=== PATIENT | female | born 1930 | race Caucasian/White ===

== ENCOUNTER 2016-09-01 17:12 | Emergency (ER) | END 2016-09-01 21:30 | disposition home or self-care (01) | CPT/HCPCS: 71020; 94640; 99283; A9270; J7620 ==

== ENCOUNTER 2016-12-01 15:59 | Outpatient (CLI) | payer MEDICARE, OTHER | END 2016-12-01 16:00 | disposition home or self-care (01) | DX: N39.0 Urinary tract infection, site not specified (principal) ==

== ENCOUNTER 2016-12-10 14:03 | Outpatient (CLI) | payer MEDICARE, OTHER | END 2016-12-10 14:04 | DX: R07.9 Chest pain, unspecified (principal) ==

== ENCOUNTER 2017-04-10 11:30 | Outpatient (CLI) | payer MEDICARE, OTHER | END 2017-04-10 11:31 | disposition home or self-care (01) | LOC: LAB.R 11:30 | PROVIDERS: ATTEND Family Medicine | DX: N39.0 Urinary tract infection, site not specified (principal) | CPT/HCPCS: 87086 ==

== ENCOUNTER 2017-06-17 11:46 | Outpatient (CLI) | payer MEDICARE, OTHER ==
[2017-06-17 12:07] LABS: BASOPHILS # (AUTO) 0.1 10^3/uL (0.0-0.1); BASOPHILS % (AUTO) 1.5 %; EOSINOPHILS # (AUTO) 0.1 10^3/uL (0.0-0.7); EOSINOPHILS % (AUTO) 1.9 %; HCT - HEMATOCRIT 38.3 % (37.0-47.0); HGB - HEMOGLOBIN 12.8 g/dL (12.0-16.0); LYMPHOCYTES # (AUTO) 1.1 10^3/uL (1.5-3.5); MEAN CORPUSCULAR HEMOGLOBIN 30.7 pg (27.0-31.0); MEAN CORPUSCULAR HGB CONC 33.4 g/dL (32.0-36.0); MEAN PLATELET VOLUME 8.7 fL (7.9-10.8); MONOCYTES # (AUTO) 0.4 10^3/uL (0.0-1.0); MONOCYTES % (AUTO) 6.9 %; NEUTROPHILS # (AUTO) 4.5 10^3/uL (1.5-6.6); NEUTROPHILS % (AUTO) 71.7 %; RED BLOOD COUNT 4.16 10^6/uL (4.20-5.40); RED CELL DISTRIBUTION WIDTH 14.7 % (12.0-15.0); UNCORRECTED WHITE BLOOD COUNT 6.3 x10^3/uL; WHITE BLOOD COUNT 6.3 x10^3/uL (4.8-10.8)
[2017-06-17 12:28] LABS: BILIRUBIN,URINE NEGATIVE (NEGATIVE)
[2017-06-17 12:30] LABS: UA CHARGE (STRIP ONLY) YES; UR CULTURE IF IND NOT INDICATED
[2017-06-17 12:31] LABS: CALCIUM 9.2 mg/dL (8.5-10.3); CREATININE 0.9 mg/dL (0.4-1.0); POTASSIUM 3.8 mmol/L (3.5-5.0)
[2017-06-17 12:39] LABS: HEMOGLOBIN A1C 0.57 g/dL
== END 2017-06-17 11:47 | disposition home or self-care (01) ==
LOC: LAB 11:46
PROVIDERS: ATTEND Orthopaedic Surgery
DX: Z01.818 Encounter for other preprocedural examination (principal); N39.0 Urinary tract infection, site not specified; R73.09 Other abnormal glucose; Z01.812 Encounter for preprocedural laboratory examination
CPT/HCPCS: 36415; 80048; 81001; 81003; 83036; 85025; 87086

== ENCOUNTER 2017-08-06 08:00 | Outpatient (CLI) | payer MEDICARE, OTHER | END 2017-08-06 08:01 | disposition home or self-care (01) | LOC: LAB.WCP 08:00 | PROVIDERS: ATTEND Family Medicine | DX: N39.0 Urinary tract infection, site not specified (principal) | CPT/HCPCS: 87086 ==

== ENCOUNTER 2017-08-11 11:49 | Outpatient (CLI) | payer MEDICARE, OTHER ==
[2017-08-11 20:32] LABS: CREATININE 0.8 mg/dL (0.4-1.0)
== END 2017-08-11 11:50 ==
LOC: LAB.WCP 11:49
PROVIDERS: ATTEND Family Medicine
DX: R55 Syncope and collapse (principal); I72.9 Aneurysm of unspecified site
CPT/HCPCS: 36415; 82565

== ENCOUNTER 2017-11-11 15:29 | Outpatient (CLI) | payer MEDICARE, OTHER ==
--- NOTE | 2017-11-12 09:26 | Ultrasound Report ---
RENAL ULTRASOUND: 11/11/2017 COMPARISON: Renal ultrasound 04/07/2013. INDICATION: Urinary retention. TECHNIQUE: Real-time scanning of the kidneys and urinary bladder was performed with malt liquors sales representative static images obtained. FINDINGS: The right kidney measures 10.3 cm. There is mild right pelviectasis. The kidney appears otherwise unremarkable without stones or masses. The left kidney measures 10.3 cm. No hydronephrosis, stones, or masses. The urinary bladder demonstrates no wall thickening. Prevoid volume 383 mL. Postvoid volume 17 mL. IMPRESSION: 1. MILD RIGHT PELVIECTASIS. OTHERWISE, NEGATIVE RENAL EVALUATION. 2. SMALL PVR. TD: 11/12/2017 09:26 PARUL
== END 2017-11-11 15:30 | disposition home or self-care (01) ==
LOC: DI 15:29
PROVIDERS: ATTEND Physician Assistant
DX: R33.9 Retention of urine, unspecified (principal); N28.89 Other specified disorders of kidney and ureter
CPT/HCPCS: 76770

== ENCOUNTER 2017-11-13 04:34 | Emergency (ER) | payer MEDICARE, OTHER ==
[2017-11-13] MEDS ORDERED: PANTOPRAZOLE 40 MG VIAL IVP STA (04:57)
--- NOTE | 2017-11-13 05:04 | ED Physician Documentation ---
PD HPI GI BLEED - Stated complaint Stated Complaint: FEMALE - Chief complaint Chief Complaint: Abd Pain - History obtained from History obtained from: Patient, Family - History of Present Illness Timing - onset: Today Timing - details: Abrupt onset Associated symptoms: BRBPR, Abdominal pain Contributing factors: No: Sick contact, Bad food, Travel Similar symptoms before: Has not had sx before Recently seen: Not recently seen - Additional information Additional information: Patient is an 87 year old female presenting to the emergency department for GI Bleed. patient reports that she had intermittent abdominal pain earlier in the day. Patient got up to go to the bathroom (to urinate) early this morning. Patient had large volume of bright red blood. Patient never has had an episode like that before. patient also fell two days prior and had significant ecchymosis around her mouth and eye but she did not want to go to the doctors office because her doctor ws not available. Review of Systems Constitutional: denies: Fever, Chills Eyes: denies: Decreased vision Ears: reports: Reviewed and negative Nose: denies: Epistaxis Throat: reports: Reviewed and negative Cardiac: denies: Chest pain / pressure, Palpitations Respiratory: reports: Reviewed and negative GI: reports: Abdominal Pain, Bloody / black stool. denies: Nausea, Vomiting : reports: Hematuria Skin: reports: Rash, Lesions Musculoskeletal: denies: Neck pain, Back pain, Extremity pain Neurologic: reports: Headache. denies: Generalized weakness, Focal weakness, Near syncope, Syncope, Confused, Altered mental status Immunocompromised: denies: Immunocompromised PD PAST MEDICAL HISTORY - Past Medical History Cardiovascular: Hypertension, High cholesterol, Coronary artery disease, Deep vein thrombosis, Angina, Arrhythmia Respiratory: Shortness of breath Neuro: Fainting Endocrine/Autoimmune: HyPOthyroidism GI: GERD, GI bleed, Diverticulitis MANAGER MULTIMEDIA: None : None HEENT: None Psych: Depression, Anxiety Musculoskeletal: Osteoarthritis Derm: 12 - Past Surgical History Past Surgical History: Yes General: Colonoscopy /MANAGER MULTIMEDIA: Hysterectomy Cardiovascular: Pacemaker, Vascular surgery - Present Medications Home Medications: Ambulatory Orders Medication Instructions Recorded Confirmed Aspirin 81 mg PO DAILY 01/16/13 11/19/16 Levothyroxine Sodium [Levoxyl] 75 mcg PO DAILY 01/16/13 11/19/16 PARoxetine [Paxil] 20 mg PO DAILY 01/16/13 11/19/16 Telmisartan [Micardis] 40 mg PO DAILY 01/16/13 11/19/16 Furosemide 20 mg PO DAILY 10/27/15 11/19/16 LORazepam [Ativan] 0.5 mg PO HS 09/01/16 11/19/16 Metoprolol Tartrate 50 mg PO BID 11/13/17 - Allergies Allergies/Adverse Reactions: Allergies Allergy/AdvReac Type Severity Reaction Status Date / Time lisinopril AdvReac Respiratory Verified 11/13/17 04:44 - Social History Does the pt smoke?: No Smoking Status: Never smoker Does the pt drink ETOH?: Yes Does the pt have substance abuse?: No - Immunizations Immunizations are current?: Yes - POLST Patient has POLST: Yes POLST Status: Full Code PD ED PE NORMAL - General General: Alert and oriented X 3 - HEENT HEENT: PERRL - Neck Neck: No bony TTP - Cardiac Cardiac: RRR - Respiratory Respiratory: No respiratory distress - Abdomen Abdomen: Soft, Non tender, Non distended - Extremities Extremities: No deformity - Neuro Neuro: Alert and oriented X 3, No motor deficit, No sensory deficit, Normal speech Eye Opening: Spontaneous Motor: Obeys Commands Verbal: Oriented GCS Score: 15 PD ED PE EXPANDED - General General: Alert - HEENT HEENT: Head injury (ecchymosis around right eye and mouth) - Rectal Rectal: Heme Occult Pos - QC +, Other (bright red and marroon stools in rectal vault) - Derm Derm: Bruising Results - Vitals Vitals: Vital Signs - 24 hr 11/13/17 04:39 Temperature 36.1 C L Heart Rate 59 L Respiratory 18 Rate Blood Pressure 211/88 H O2 Saturation 97 Oxygen O2 Source Room air - Labs Labs: Laboratory Tests 11/13/17 11/13/17 11/13/17 05:05 05:05 05:05 WBC 8.7 RBC 3.81 L Hgb 11.2 L Hct 34.7 L MCV 91.0 MCH 29.3 MCHC 32.2 RDW 14.6 Plt Count 178 MPV 8.9 Neut # 6.6 Lymph # 1.3 L [place] # 0.6 Eos # 0.1 Baso # 0.1 Absolute Nucleated RBC 0.01 Nucleated RBC % 0.1 PT 10.4 INR 0.9 APTT 22.9 L Sodium 135 Potassium 3.8 Chloride 101 Carbon Dioxide 24 Anion Gap 10.0 BUN 22 H Creatinine 0.9 Estimated GFR (MDRD) 59 L Glucose 156 H Calcium 9.1 Total Bilirubin 0.2 AST 19 ALT 11 Alkaline Phosphatase 56 Total Protein 6.6 L Albumin 3.9 Globulin 2.7 Albumin/Globulin Ratio 1.4 Lipase 22 Blood Type Antibody Screen 11/13/17 05:05 WBC RBC Hgb Hct MCV MCH MCHC RDW Plt Count MPV Neut # Lymph # [place] # Eos # Baso # Absolute Nucleated RBC Nucleated RBC % PT INR APTT Sodium Potassium Chloride Carbon Dioxide Anion Gap BUN Creatinine Estimated GFR (MDRD) Glucose Calcium Total Bilirubin AST ALT Alkaline Phosphatase Total Protein Albumin Globulin Albumin/Globulin Ratio Lipase Blood Type O NEGATIVE Antibody Screen NEGATIVE PD MEDICAL DECISION MAKING - ED course Complexity details: reviewed old records, reviewed results, re-evaluated patient , considered differential, d/w patient, d/w family, d/w retirement sales consultant ED course: Patient was seen and examined at bedside. IV access was gained and labs were drawn. rectal exam was performed and showed bright red and doug stool. Patient was treated with protonix. Imaging was ordered. When patient returned from imaging the results were reviewed. Patient did have extensive diverticulosis which was the likely source of the bleed. Patient's hemoglobin, and vital signs were stable. CAse was discussed with credit collections clerk surgery, Dr. Grajeda who stated that out patient follow up was appropriate. Patient and son were given detailed discharge and follow up instructions and were comfortable with the plan. Patient was discharged in stable condition. Departure - Departure Disposition: 01 Home, Self Care Clinical Impression: Diverticulosis of intestine with bleeding Condition: Good Instructions: ED Diverticulosis Follow-Up: KELSEA GRAJEDA MD [Provider Admit Priv/Credential] - Tomorrow Comments: Your bleeding today is being caused by diverticulosis. Often times the bleeding will stop on its own like it did this morning. You should call Dr. grajeda's office to schedule a follow up appointment this week. You should return to the emergency department if the bleeding returns, you become dizzy, lightheaded or get severe pain.
[2017-11-13 05:21] LABS: BASOPHILS # (AUTO) 0.1 10^3/uL (0.0-0.1); BASOPHILS % (AUTO) 0.7 %; EOSINOPHILS # (AUTO) 0.1 10^3/uL (0.0-0.7); EOSINOPHILS % (AUTO) 1.5 %; HGB - HEMOGLOBIN 11.2 g/dL (12.0-16.0); LYMPHOCYTES # (AUTO) 1.3 10^3/uL (1.5-3.5); LYMPHOCYTES % (AUTO) 14.8 %; MEAN CORPUSCULAR HEMOGLOBIN 29.3 pg (27.0-31.0); MEAN CORPUSCULAR HGB CONC 32.2 g/dL (32.0-36.0); MEAN PLATELET VOLUME 8.9 fL (7.9-10.8); MONOCYTES # (AUTO) 0.6 10^3/uL (0.0-1.0); MONOCYTES % (AUTO) 7.2 %; NEUTROPHILS # (AUTO) 6.6 10^3/uL (1.5-6.6); NEUTROPHILS % (AUTO) 75.8 %; PLT - PLATELET COUNT 178 10^3/uL (130-450); RED BLOOD COUNT 3.81 10^6/uL (4.20-5.40); RED CELL DISTRIBUTION WIDTH 14.6 % (12.0-15.0); WHITE BLOOD COUNT 8.7 x10^3/uL (4.8-10.8)
[2017-11-13 05:32] LABS: ALBUMIN 3.9 g/dL (3.2-5.5); ALBUMIN/GLOBULIN RATIO 1.4 (1.0-2.2); BILIRUBIN,TOTAL 0.2 mg/dL (0.2-1.0); CALCIUM 9.1 mg/dL (8.5-10.3); CREATININE 0.9 mg/dL (0.4-1.0); TOTAL PROTEIN 6.6 g/dL (6.7-8.2)
[2017-11-13 05:37] LABS: INR 0.9 (0.8-1.2); PT - PROTHROMBIN TIME 10.4 secs (9.9-12.6)
[2017-11-13] MEDS ORDERED: IOPAMIDOL-300 100 ML VIAL ONE (06:07)
[2017-11-13] MEDS ORDERED: IOPAMIDOL-300 100 ML VIAL IVP ONE (06:25)
[2017-11-13] MEDS ORDERED: SODIUM CHLORIDE 0.9% 1,000 ML IV ONE (06:55)
--- NOTE | 2017-11-13 07:05 | CT Preliminary Report ---
Exam: CT ABDOMEN/PELVIS W/ IMPRESSION: 1. No acute abdominal or pelvic abnormality. 2. Gallstone without cholecystitis or biliary dilation. 3. Severe sigmoid diverticulosis without diverticulitis. 4. Age-indeterminate mild superior endplate compression fracture of L1. [facility] SITE ID: [id number]
--- NOTE | 2017-11-13 07:05 | CT Report ---
EXAM: CT ABDOMEN AND PELVIS EXAM DATE: 11/13/2017 06:29 AM. CLINICAL HISTORY: Give bleeding, abdominal pain COMPARISONS: 05/03/2013 TECHNIQUE: Routine helical CT imaging was performed through the abdomen and pelvis. IV contrast: 75 m L [id number]. Enteric contrast: No. Reconstructions: Coronal and sagittal. In accordance with CT protocol optimization, one or more of the following dose reduction techniques w ere utilized for this exam: automated exposure control, adjustment of mA and/or KV based on patient s ize, or use of iterative reconstructive technique. FINDINGS: ABDOMEN: Liver: No significant abnormality. Stomach/Distal Esophagus: Small hiatal hernia. Gallbladder: Gallstone is noted. Bile Ducts: No significant abnormality. Pancreas: No significant abnormality. Spleen: No significant abnormality. Kidneys: No suspicious solid appearing lesion. No hydronephrosis. Adrenals: No significant abnormality. Bowel: No obstruction. Average fecal residual. Severe sigmoid diverticulosis is present. Appendix: Normal. Lymph Nodes: No pathologically enlarged nodes. Vasculature: Normal caliber aorta. There is moderate to severe aortic and branch vessel atheroscleros is. Fluid: No significant free fluid. Abdominal Wall: No significant abnormality. Other: No significant abnormality. PELVIS: Uterus and Ovaries: Surgically absent uterus. Ovaries are not visualized, possibly surgically absent as well. Bladder: No significant abnormality. Lymph Nodes: No pathologically enlarged nodes. Fluid: No significant free fluid. Other: There is a nonspecific small calcific/high density object at the vaginal introitus. This is be low the expected level of the urethral meatus. This is nonspecific. BONES: No suspicious bony lesions. There is moderate multilevel degenerative change within the spine. Mild superior endplate compression fracture of L1. Moderate pectus excavatum deformity. LOWER CHEST: No significant consolidation or effusion. IMPRESSION: 1. No acute abdominal or pelvic abnormality. 2. Gallstone without cholecystitis or biliary dilation. 3. Severe sigmoid diverticulosis without diverticulitis. 4. Age-indeterminate mild superior endplate compression fracture of L1. [facility] Referring Provider Line: [phone] SITE ID: [id number]
[2017-11-13 07:44] VITALS: BP 186/77
== END 2017-11-13 08:02 | disposition home or self-care (01) ==
LOC: ED 04:34
DX: K57.31 Diverticulosis of large intestine without perforation or abscess with bleeding (principal)
CPT/HCPCS: 74177; 80053; 83690; 85025; 85610; 85730; 86850; 86900; 86901; 99283

== ENCOUNTER 2017-11-13 08:58 | Outpatient (CLI) | payer MEDICARE, OTHER | END 2017-11-13 08:59 | disposition critical access hospital (66) | LOC: EMS 08:58 | PROVIDERS: ATTEND Surgery | DX: K62.5 Hemorrhage of anus and rectum (principal); R10.9 Unspecified abdominal pain; R11.2 Nausea with vomiting, unspecified; R42 Dizziness and giddiness | CPT/HCPCS: A0425; A0429 ==

== ENCOUNTER 2017-11-13 09:27 | Inpatient (IN) | payer MEDICARE, OTHER ==
--- NOTE | 2017-11-13 09:43 | ED Physician Documentation ---
PD HPI GI BLEED - Stated complaint Stated Complaint: GI BLEED - History obtained from History obtained from: Patient, Family, EMS - History of Present Illness Timing - onset: Enter time (299), Today Timing - duration: Hours Timing - details: Abrupt onset, Intermittant Associated symptoms: BRBPR, Abdominal pain, Near syncope / syncope Contributing factors: Other (diverticulosis) Improved by: Laying still Similar symptoms before: Has not had sx before Recently seen: Emergency Dept - Additional information Additional information: 87-year-old female has developed acute GI bleeding at approximately 3 AM this morning with bright red blood per rectum. She was seen and evaluated in the emergency department at about 5:[address] Babb she was noted to have stable vital signs and a stable hematocrit and CT scanning showed extensive diverticula. Diverticula are assumed to be the site of bleeding. The patient was stable with minimal blood loss and was discharged to home. When she arrived to home she was there a short time and had a massive bowel movement of bright red blood. This was in the commode and on the rao and floor. She states that she soaked up 3-4 dish towels with blood. She has had her knee replaced last month and she has not seen her doctor in the past 2 months for anything. She had a fall about 4 days ago when she tripped on a throw rug in her kitchen and fell bruising her face and forehead. She had no LOC and was not otherwise injured and she has made an appointment to see her doctor and this was scheduled for later today. Review of Systems Constitutional: denies: Fever, Chills Eyes: reports: Other (contusion to the right carlos-orbital). denies: Decreased vision Ears: denies: Ear pain Nose: denies: Congestion Throat: denies: Oral lesions / sores Cardiac: denies: Chest pain / pressure, Palpitations Respiratory: denies: Dyspnea, Cough GI: reports: Abdominal Pain, Nausea, Bloody / black stool. denies: Vomiting : denies: Dysuria, Frequency Skin: denies: Rash Musculoskeletal: denies: Neck pain, Back pain, Extremity pain Neurologic: reports: Generalized weakness. denies: Focal weakness, Numbness PD PAST MEDICAL HISTORY - Past Medical History Cardiovascular: Hypertension, High cholesterol, Coronary artery disease, Deep vein thrombosis, Angina, Arrhythmia Respiratory: Shortness of breath Neuro: Fainting Endocrine/Autoimmune: HyPOthyroidism GI: GERD, GI bleed, Diverticulitis PACKER DENTURE: None : None HEENT: None Psych: Depression, Anxiety Musculoskeletal: Osteoarthritis Derm: 12 - Past Surgical History Past Surgical History: Yes General: Colonoscopy /PACKER DENTURE: Hysterectomy Cardiovascular: Pacemaker, Vascular surgery - Present Medications Home Medications: Ambulatory Orders Medication Instructions Recorded Confirmed Aspirin 81 mg PO DAILY 01/16/13 11/19/16 Levothyroxine Sodium [Levoxyl] 75 mcg PO DAILY 01/16/13 11/19/16 PARoxetine [Paxil] 20 mg PO DAILY 01/16/13 11/19/16 Telmisartan [Micardis] 40 mg PO DAILY 01/16/13 11/19/16 Furosemide 20 mg PO DAILY 10/27/15 11/19/16 LORazepam [Ativan] 0.5 mg PO HS 09/01/16 11/19/16 Metoprolol Tartrate 50 mg PO BID 11/13/17 - Allergies Allergies/Adverse Reactions: Allergies Allergy/AdvReac Type Severity Reaction Status Date / Time lisinopril AdvReac Respiratory Verified 11/13/17 10:01 - Social History Does the pt smoke?: No Smoking Status: Never smoker Does the pt drink ETOH?: Yes Does the pt have substance abuse?: No - Immunizations Immunizations are current?: Yes - POLST Patient has POLST: Yes POLST Status: Full Code PD ED PE NORMAL - Vitals Vital signs reviewed: Yes - General General: Alert and oriented X 3, No acute distress, Well developed/nourished - HEENT HEENT: PERRL, EOMI, Other (There is ecchymosis at least 4 days old over the right carlos-orbital area and the right upper lip .) - Neck Neck: Supple, no meningeal sign, No bony TTP - Cardiac Cardiac: RRR, No murmur - Respiratory Respiratory: No respiratory distress, Clear bilaterally - Abdomen Abdomen: Soft, Non tender - Back Back: No CVA TTP, No spinal TTP - Derm Derm: Normal color, Warm and dry, No rash - Extremities Extremities: No deformity, No edema, Other (There is blood splattered to the posterior calf) - Neuro Neuro: Alert and oriented X 3, surgical coordinator 2-12 intact, No motor deficit, No sensory deficit, Normal speech Eye Opening: Spontaneous Motor: Obeys Commands Verbal: Oriented GCS Score: 15 - Psych Psych: Normal mood, Normal affect Results - Vitals Vitals: Vital Signs - 24 hr 11/13/17 09:29 Temperature 37.1 C Heart Rate 60 Respiratory 20 Rate Blood Pressure 155/57 H O2 Saturation 99 Oxygen O2 Source Room air - Labs Labs: Laboratory Tests 11/13/17 11/13/17 11/13/17 09:45 09:45 09:45 WBC 9.4 RBC 3.27 L Hgb 9.9 L Hct 29.7 L MCV 90.8 MCH 30.4 MCHC 33.5 RDW 14.6 Plt Count 150 MPV 8.9 Neut # 8.1 H Lymph # 0.9 L [place] # 0.4 Eos # 0.0 Baso # 0.0 Absolute Nucleated RBC 0.00 Nucleated RBC % 0.0 Sodium 131 L Potassium 3.7 Chloride 101 Carbon Dioxide 23 Anion Gap 7.0 BUN 21 H Creatinine 0.7 Estimated GFR (MDRD) 79 L Glucose 179 H Calcium 8.3 L Total Bilirubin 0.6 AST 17 ALT < 10 L Alkaline Phosphatase 48 Troponin I < 0.04 Total Protein 6.1 L Albumin 3.7 Globulin 2.4 Albumin/Globulin Ratio 1.5 Lipase 15 L Procedures - IVC sono (time) 0940 Bedside IVC sono: IVC measures (cm) (0.74), Significant dehydration PD MEDICAL DECISION MAKING - ED course Complexity details: reviewed old records, reviewed results, re-evaluated patient , considered differential, d/w patient, d/w family ED course: 87-year-old female with a history of hypertension coronary artery disease and diverticulitis who has a pacemaker in place has developed an acute GI bleed she was seen and evaluated in the emergency department earlier this morning with stable vital signs and normal hematocrit. She had no further bleeding in the emergency department and was discharged home and has had a massive output of blood since arriving back at home. She is found to be volume depleted and IV is begun and she is given saline. Her hct had dropped 5 points and is not in the transfusion range. Dr. Albert is consulted in the case for admission. Departure - Departure Disposition: ED Place in Observation Clinical Impression: Diverticulosis of intestine with bleeding Qualifiers: Diverticulosis site: diverticulosis of large intestine Qualified Code(s): K57.31 - Diverticulosis of large intestine without perforation or abscess with bleeding
[2017-11-13 10:04] LABS: BASOPHILS % (AUTO) 0.5 %; HGB - HEMOGLOBIN 9.9 g/dL (12.0-16.0); LYMPHOCYTES # (AUTO) 0.9 10^3/uL (1.5-3.5); LYMPHOCYTES % (AUTO) 9.4 %; MEAN CORPUSCULAR HEMOGLOBIN 30.4 pg (27.0-31.0); MEAN CORPUSCULAR HGB CONC 33.5 g/dL (32.0-36.0); MEAN CORPUSCULAR VOLUME 90.8 fL (81.0-99.0); MEAN PLATELET VOLUME 8.9 fL (7.9-10.8); MONOCYTES # (AUTO) 0.4 10^3/uL (0.0-1.0); NEUTROPHILS # (AUTO) 8.1 10^3/uL (1.5-6.6); NEUTROPHILS % (AUTO) 86.1 %; PLT - PLATELET COUNT 150 10^3/uL (130-450); RED BLOOD COUNT 3.27 10^6/uL (4.20-5.40); RED CELL DISTRIBUTION WIDTH 14.6 % (12.0-15.0); WHITE BLOOD COUNT 9.4 x10^3/uL (4.8-10.8)
[2017-11-13 10:12] LABS: ALBUMIN 3.7 g/dL (3.2-5.5); ALBUMIN/GLOBULIN RATIO 1.5 (1.0-2.2); ALKALINE PHOSPHATASE 48 IU/L (42-121); ALT ALANINE AMINOTRANSFERASE < 10 IU/L (10-60); AST ASPARTATE AMINOTRANSFERASE 17 IU/L (10-42); BILIRUBIN,TOTAL 0.6 mg/dL (0.2-1.0); BUN - BLOOD UREA NITROGEN 21 mg/dL (6-20); CALCIUM 8.3 mg/dL (8.5-10.3); CARBON DIOXIDE - CO2 23 mmol/L (21-32); CHLORIDE 101 mmol/L (101-111); CREATININE 0.7 mg/dL (0.4-1.0); GFR - MDRD 79 (>89); GLUCOSE 179 mg/dL (70-100); LIPASE 15 U/L (22-51); SODIUM 131 mmol/L (135-145); TOTAL PROTEIN 6.1 g/dL (6.7-8.2)
[2017-11-13] MEDS ORDERED: PROCHLORPERAZINE 10 MG/2 ML VIAL IVP PRN (11:39)
[2017-11-13] MEDS ORDERED: TEMAZEPAM 15 MG CAPSULE PO PRN (11:39)
[2017-11-13] MEDS ORDERED: SODIUM CHLORIDE FLUSH 0.9% 10 ML SYRINGE IVP PRN (11:39)
[2017-11-13] MEDS ORDERED: oxyCODONE 5 MG TABLET PO PRN (11:39)
--- NOTE | 2017-11-13 12:07 | HISTORY & PHYSICAL EXAMINATION ---
Chief Complaint - Chief Complaint Chief Complaint: Bleeding per rectum History of Present Illness - Admitted From Admitted From:: Home - History Obtained From Records Reviewed: yes History obtained from: Patient, granddaughter,Dr Miranda Exam Limitations: Pt has slight confusion per granddaughter - History of Present Illness HPI Comment/Other: Mrs. Raquel Montenegro is a very pleasant 87-year-old female with a history of bleeding per rectum. She came to the emergency department at [facility] earlier today where she was worked up and eventually released home. She went back home and shortly after arriving there had another large bloody bowel movement and so decided to come back to the emergency department repeat testing found the patient had dropped 5 points on her hematocrit and so the decision was made to bring the patient in and perform serial hematocrit and hemoglobin testing and obtain a surgical consultation with Dr Grajeda. 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 Her son now lives with her. - Substance History Use: Uses substance without health or social issues: Alcohol Abuse: Recurrent use of substance despite neg consequences: NONE Dependence: Experiences withdrawal or developed tolerances: NONE - POLST Patient has POLST: Yes POLST Status: Full Code Meds/Allgy - Home Medications Home Medications: Ambulatory Orders Medication Instructions Recorded Confirmed Aspirin 81 mg PO DAILY 01/16/13 11/13/17 Levothyroxine Sodium [Levoxyl] 75 mcg PO QDAC 01/16/13 11/13/17 PARoxetine [Paxil] 20 mg PO DAILY 01/16/13 11/13/17 Telmisartan [Micardis] 80 mg PO DAILY 01/16/13 11/13/17 Furosemide 20 mg PO DAILY 10/27/15 11/13/17 LORazepam [Ativan] 0.5 mg PO BID PRN 09/01/16 11/13/17 Ipratropium/Albuterol [Duoneb] 3 ml INH QID 11/13/17 11/13/17 Metoprolol Tartrate 50 mg PO BID 11/13/17 11/13/17 - Allergies Allergies/Adverse Reactions: Allergies Allergy/AdvReac Type Severity Reaction Status Date / Time lisinopril AdvReac Respiratory Verified 11/13/17 10:01 Review of Systems - Constitutional Constitutional: reports: Fatigue. denies: Fever, Chills, Malaise, Diaphoresis, Night sweats - Eyes Eyes: denies: Pain, Irritation, Blurred vision, Dipolpia - Ears, Nose & Throat Ears, Nose & Throat: denies: Ear pain, Hearing loss, Tinnitus, Vertigo, Nasal pain, Nosebleeds - Cardiovascular Cariovascular: denies: Palpitations, Chest pain, Edema, Syncope, Orthopnea - Respiratory Respiratory: denies: Cough, Sputum production, Wheezing, Snoring, Hemoptysis, Orthopnea, SOB at rest, SOB with exertion - Gastrointestinal Gastrointestinal: reports: Change in bowel habits, Rectal bleeding, Bloody stools. denies: Abdominal pain, Abdominal distention, Constipation, Diarrhea, Nausea, Vomiting - Genitourinary Genitourinary: denies: Dysuria, Frequency, Urgency, Hematuria - Musculoskeletal Musculoskeletal: denies: Muscle pain, Back pain, Muscle aches, Stiffness - Integumentary Integumentary: denies: Rash, Pruritis, Lesions, Dryness - Neurological Neurological: denies: General weakness, Focal weakness, Headache, Dizziness - Psychiatric Psychiatric: denies: Depression, Anxiety, Suicidal - Endocrine Endocrine: denies: Polyuria, Polydypsia - Hematologic/Lymphatic Hematologic/Lymphatic: denies: Anemia, Bruising, Petechiae - All Other Systems All Other Systems: reports: Reviewed and negative Exam - Vital Signs Reviewed Vital Signs: Yes Vital Signs: Vital Signs x48h Temp Pulse Resp BP Pulse Ox 11/13/17 09:29 37.1 C 60 20 155/57 H 99 - Physical Exam General Appearance: positive: No acute distress, Alert Eyes Bilateral: positive: Normal inspection, PERRL, EOMI, No lid inflammation, Conjunctivae nml, No scleral icterus ENT: positive: ENT inspection nml, Pharynx nml, No signs of dehydration Neck: positive: Nml inspection, Thyroid nml, No JVD, Trachea midline. negative : Thyromegaly Respiratory: positive: Chest non-tender, No respiratory distress, Breath sounds nml. negative: Wheezes, Rales, Rhonchi Cardiovascular: positive: Regular rate & rhythm, No murmur, No gallop Peripheral Pulses: positive: 1+ Abdomen: positive: Non-tender, No organomegaly, Nml bowel sounds, No distention. negative: Guarding, Rebound Rectal: positive: Stool - heme POS, Bloody stool. negative: Mass Back: positive: Nml inspection. negative: CVA tenderness (R), CVA tenderness (L ) Skin: positive: Color nml, No rash, Warm, Dry. negative: Cyanosis Extremities: positive: Non-tender, Full ROM, Nml appearance Neurologic/Psychiatric: positive: Oriented x3, CN's nml (2-12), Motor nml, Sensation nml, Mood/affect nml Conclusion/Plan - Problem List (1) GI bleed Conclusion/Plan: Significant. The patient's hematocrit dropped 5 points in less than 12 hours. We will monitor serial H and Hs, and I have arranged for consultation with Dr. Grajeda, of surgery. (2) Hypertension Conclusion/Plan: Blood pressure is slightly elevated but otherwise well-managed. We will continue the patient on metoprolol and Myocarditis with furosemide given daily as well. (3) Congestive heart failure Conclusion/Plan: No evidence of CHF exacerbation at this time. Continue with furosemide and metoprolol. (4) Anxiety and depression Conclusion/Plan: Well-managed, continue Paxil. (5) COPD (chronic obstructive pulmonary disease) Conclusion/Plan: Well-managed, no evidence of acute exacerbation of COPD at this time. Continue DuoNeb. - Lab Results Lab results reviewed: Yes Fish Bones: 11/13/17 09:45 11/13/17 09:45 - Diagnostic Imaging Results Diagnostic Imaging Results: positive: Final report reviewed Diagnostic Imaging Results Comments: EXAM: CT ABDOMEN AND PELVIS EXAM DATE: 11/13/2017 06:29 AM. CLINICAL HISTORY: Give bleeding, abdominal pain COMPARISONS: 05/03/2013 TECHNIQUE: Routine helical CT imaging was performed through the abdomen and pelvis. IV contrast: 75 mL Isovue-300. Enteric contrast: No. Reconstructions: Coronal and sagittal. In accordance with CT protocol optimization, one or more of the following dose reduction techniques were utilized for this exam: automated exposure control, adjustment of mA and/or KV based on patient size, or use of iterative reconstructive technique. FINDINGS: ABDOMEN: Liver: No significant abnormality. Stomach/Distal Esophagus: Small hiatal hernia. Gallbladder: Gallstone is noted. Bile Ducts: No significant abnormality. Pancreas: No significant abnormality. Spleen: No significant abnormality. Kidneys: No suspicious solid appearing lesion. No hydronephrosis. Adrenals: No significant abnormality. Bowel: No obstruction. Average fecal residual. Severe sigmoid diverticulosis is present. Appendix: Normal. Lymph Nodes: No pathologically enlarged nodes. Vasculature: Normal caliber aorta. There is moderate to severe aortic and branch vessel atherosclerosis. Fluid: No significant free fluid. Abdominal Wall: No significant abnormality. Other: No significant abnormality. PELVIS: Uterus and Ovaries: Surgically absent uterus. Ovaries are not visualized, possibly surgically absent as well. Bladder: No significant abnormality. Lymph Nodes: No pathologically enlarged nodes. Fluid: No significant free fluid. Other: There is a nonspecific small calcific/high density object at the vaginal introitus. This is below the expected level of the urethral meatus. This is nonspecific. BONES: No suspicious bony lesions. There is moderate multilevel degenerative change within the spine. Mild superior endplate compression fracture of L1. Moderate pectus excavatum deformity. LOWER CHEST: No significant consolidation or effusion. IMPRESSION: 1. No acute abdominal or pelvic abnormality. 2. Gallstone without cholecystitis or biliary dilation. 3. Severe sigmoid diverticulosis without diverticulitis. 4. Age-indeterminate mild superior endplate compression fracture of L1. Core Measures - Anticipated LOS I expect patient to be DC'd or transferred within 96 hours.: Yes - DVT/VTE - Prophylaxis VTE/DVT Device ordered at admit?: Yes
[2017-11-13 12:46] LABS: HGB - HEMOGLOBIN 9.1 g/dL (12.0-16.0)
[2017-11-13] MEDS: D5.45NS W/20 MEQ KCL 1,000 ML IV SCH ×2 (14:11→23:58)
--- NOTE | 2017-11-13 15:45 | CONSULTATION NOTE ---
Referring Provider Name of Referring Provider:: Micheal Consult Date: 11/13/17 Chief Complaint - Chief Complaint Chief Complaint: GI bleed History of Present Illness - Admitted From Admitted From:: ER - History of Present Illness HPI Comment/Other: This is a very pleasant 87-year-old female who reported to the emergency department early this morning for an episode of a bloody bowel movement around 3 :00 this morning. She states that when she went to bed last night she had some "grumbling" in her stomach and some vague cramping abdominal discomfort but no complaints of abdominal pain. At approximately 3 AM she woke up and she had one episode of a bloody bowel movement. She describes this as dark red. She went to the emergency department and was evaluated. She was noted to be hemodynamically stable with hemoglobin of 11 and a hematocrit of 34. She was subsequently discharged home with the plan to follow-up for an outpatient evaluation for possible colonoscopy. Once she arrived at home she had another episode of a more severe bloody bowel movement. She describes this as a very large quantity which was also dark red blood. She denies the consistency of melena and states that the blood was quite red and somewhat muddy. She came back to the ER for re-evaluation. She the underwent a CT scan evaluation in the emergency department and this was notable only for diverticulosis. She denies any prior history of similar episodes. She denies any significant NSAID intake or epigastric pain. She has no history of peptic ulcer disease or GERD. Her last colonoscopy was in 2012 performed here at [facility]. It was notable for moderate to severe diverticulosis in her sigmoid and descending colon. The patient was subsequently admitted to the medical service and a surgical consultation obtained. Upon my evaluation of the patient she was resting in bed comfortably and hemodynamically stable with her granddaughter at the bedside. The patient has mild dementia but otherwise is a pretty good historian. She confirms the above ER documentation. Currently she is not having any abdominal pain and denies any history of abdominal pain. Her last meal was approximately 1 hour ago and was a regular diet. 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 Her son now lives with her. - Substance History Use: Uses substance without health or social issues: Alcohol Abuse: Recurrent use of substance despite neg consequences: NONE Dependence: Experiences withdrawal or developed tolerances: NONE - POLST Patient has POLST: Yes POLST Status: Full Code Meds/Allgy - Home Medications Home Medications: Ambulatory Orders Medication Instructions Recorded Confirmed Aspirin 81 mg PO DAILY 01/16/13 11/13/17 Levothyroxine Sodium [Levoxyl] 75 mcg PO QPM 01/16/13 11/13/17 PARoxetine [Paxil] 20 mg PO DAILY 01/16/13 11/13/17 Telmisartan [Micardis] 40 mg PO BID 01/16/13 11/13/17 Furosemide 20 mg PO DAILY PRN 10/27/15 11/13/17 LORazepam [Ativan] 0.5 mg PO BID PRN 09/01/16 11/13/17 Metoprolol Tartrate 50 mg PO BID 11/13/17 11/13/17 - Allergies Allergies/Adverse Reactions: Allergies Allergy/AdvReac Type Severity Reaction Status Date / Time lisinopril AdvReac Respiratory Verified 11/13/17 10:01 Exam - Vital Signs Reviewed Vital Signs: Yes Vital Signs: Vital Signs x48h Pulse BP Pulse Ox 11/13/17 12:24 60 146/63 H 98 - Physical Exam General Appearance: positive: No acute distress Eyes Bilateral: positive: Other (right sided periorbital ecchymosis; peribuccal ecchymosis) Respiratory: positive: No respiratory distress Cardiovascular: positive: Regular rate & rhythm Abdomen: positive: Non-tender, No distention. negative: Guarding, Mass Rectal: positive: Other (no rectal masses palpable. Flecks of dark stool and bleed in rectal vault) Extremities: positive: No pedal edema Neurologic/Psychiatric: positive: Oriented x3 Conclusion/Plan - Diagnosis Diagnosis: GI bleed - Plan Plan: The differential diagnosis of the patient's GI bleed would include diverticular disease, bleeding colonic poyps versus a colonic mass. Less likely the patient may have an upper GI source such as peptic ulcer disease or gastritis. Given her previous history of diverticulosis this is the most likely source of her bleeding. She does not seem to be actively bleeding at this point. I recommend continued serial H&H monitoring, monitoring of her blood pressure and heart rate and monitoring for repeated episodes of rectal bleeding. If she does develop persistent lower GI bleeding she will likely need to be bowel prepped for a colonoscopy. If the patient remains hemodynamically stable over the next 24 hours she can be evaluate her on an outpatient basis for the necessity of repeated scoping. Given the patient's age, I would only recommend proceeding with colonoscopy if intervention for hemostasis is necessary or if bleeding is persistent. The patient should be kept on a clear liquid diet until she has been observed for a period of 24 hours in the event that she will require bowel prep. - Lab Results Lab results reviewed: Yes Alex Bones: 11/13/17 12:35 11/13/17 09:45
[2017-11-13] MEDS: SODIUM CHLORIDE FLUSH 0.9% 10 ML SYRINGE IVP SCH ×2 (17:12→23:58)
[2017-11-13 19:07] LABS: PT - PROTHROMBIN TIME 11.4 secs (9.9-12.6)
[2017-11-13 19:21] LABS: HGB - HEMOGLOBIN 8.2 g/dL (12.0-16.0)
[2017-11-13 19:53] LABS: BILIRUBIN,URINE NEGATIVE (NEGATIVE); CLARITY,URINE CLOUDY (CLEAR); GLUCOSE, URINE (UA) NEGATIVE (NEGATIVE); KETONES,URINE (UA) NEGATIVE (NEGATIVE); LEUKOCYTE ESTERASE, URINE MODERATE (NEGATIVE); NITRITE,URINE NEGATIVE (NEGATIVE); OCCULT BLOOD,URINE SMALL (NEGATIVE); PH,URINE 5.5 PH (5.0-7.5); PROTEIN,URINE 30 mg/dL (NEGATIVE); UROBILINOGEN,URINE 0.2 (NORMAL) E.U./dL (NORMAL)
[2017-11-13 20:28] LABS: BACTERIA,URINE Rare /HPF (None Seen); RBC,URINE TNTC /HPF (0-5); SQUAMOUS EPITHELIAL CELL,UR NONE SEEN (<= Few)
[2017-11-14] MEDS ORDERED: cefTRIAXone 1 GM in SODIUM CHLORIDE 0.9% MINIBAG 100 ML IV SCH (01:00)
[2017-11-14] MEDS ORDERED: LORazepam 2 MG/ML VIAL IVP PRN (02:09)
[2017-11-14] MEDS: LORazepam 2 MG/ML VIAL IVP SCH ×2 (02:13→02:29)
[2017-11-14] MEDS ORDERED: LORazepam 2 MG/ML VIAL IVP ONE (02:23)
--- NOTE | 2017-11-14 03:07 | CT Preliminary Report ---
Exam: CT HEAD W/O STROKE PROTOCOL IMPRESSION: 1. No acute intracranial process. 2. Moderate microvascular disease. [facility] The call report notification system was initiated by Dr. Johann Tong at 02:54 hrs on 11/14/17. The above findings were discussed with RN caring for patient by Dr. Johann Tong at 03:05 hrs on . SITE ID: [id number]
--- NOTE | 2017-11-14 03:07 | CT Report ---
EXAM: CT HEAD EXAM DATE: 11/14/2017 02:44 AM. CLINICAL HISTORY: Delirium COMPARISON: Head CT/CTA 07/01/2017. TECHNIQUE: Multiaxial CT images were obtained from the foramen magnum to the vertex. Reformats: Coron al. IV contrast: None. In accordance with CT protocol optimization, one or more of the following dose reduction techniques w ere utilized for this exam: automated exposure control, adjustment of mA and/or KV based on patient s ize, or use of iterative reconstructive technique. FINDINGS: Parenchyma: No intraparenchymal hemorrhage. No evidence of mass, midline shift, or CT findings of inf arction. There are areas of low-density involving white matter bilateral cerebral hemispheres. Grider-w neida differentiation is distinct. Extraaxial Spaces: Normal for age. No subdural or epidural collections identified. Ventricles: Normal in size and position. Sinuses and Orbits: Imaged paranasal sinuses, orbits, and mastoids show no significant abnormality. Bones: No evidence of fracture or calvarial defect. Other: None. IMPRESSION: 1. No acute intracranial process. 2. Moderate microvascular disease. [facility] The call report notification system was initiated by Dr. Johann Tong at 02:54 hrs on 11/14/17. The above findings were discussed with RN caring for patient by Dr. Johann Tong at 03:05 hrs on . Referring Provider Line: [phone] SITE ID: [id number]
--- NOTE | 2017-11-14 03:18 | XRAY Preliminary Report ---
Exam: XR CHEST 1 VIEW X-RAY IMPRESSION: No acute process seen in the chest. [facility] SITE ID: [id number]
--- NOTE | 2017-11-14 03:53 | XRAY Report ---
EXAM: CHEST RADIOGRAPHY EXAM DATE: 11/14/2017 03:07 AM. CLINICAL HISTORY: Agitation, hypertension. COMPARISON: 09/01/2016. TECHNIQUE: 1 view. FINDINGS: Lungs/Pleura: No focal opacities evident. No pleural effusion. No pneumothorax. Mediastinum: Within exam limitations, the cardiomediastinal contour is normal. Other: Stable right pacer. IMPRESSION: No acute process seen in the chest. [facility] Referring Provider Line: [phone] SITE ID: [id number]
[2017-11-14 06:44] LABS: HGB - HEMOGLOBIN 7.2 g/dL (12.0-16.0)
[2017-11-14] MEDS ORDERED: ACETAMINOPHEN 325 MG TABLET PO SCH (07:17)
[2017-11-14] MEDS ORDERED: FUROSEMIDE 20 MG/2 ML VIAL IVP PRN (07:17)
[2017-11-14] MEDS ORDERED: diphenhydrAMINE 25 MG CAPSULE PO SCH (07:18)
[2017-11-14] MEDS ORDERED: MAGNESIUM CITRATE 296 ML BOTTLE PO SCH (07:38)
[2017-11-14] MEDS ORDERED: SALINE ENEMA 133 ML BOTTLE RC SCH (07:38)
[2017-11-14] MEDS ORDERED: BISACODYL 10 MG SUPP PR SCH (07:38)
--- NOTE | 2017-11-14 08:49 | PROVIDER PROGRESS NOTE ---
Subjective - Prog Note Date Prog Note Date: 11/14/17 Prog Note Time: 08:43 - Subjective Subjective: pt appears to continue to bleed-- management d/w hospitaloists and pt son hui who wishes to proceed to endoscopy to try to identify bleeding sour pt appears quite somnolent and i doubt able to give consent so i guess the son needs to do that-- will need a prep-- i think she will need ng tube to give golytely prep for colonoscopy, and then if that does not identify the bleeding source then also do egd-- if neither of thse two id the source then consider what to do next- possibly transfer for higher level of care for bleeding scans etc vs just wartch and wait and see if she stops and if not tuff decisions would need to be made by family- management d/w hospitalist Objective - Vital Signs/Intake & Output Vital Signs: Vital Signs x48h Temp Pulse Pulse Resp BP BP Pulse Ox 11/14/17 08:38 36.3 C L 63 16 94/38 L 11/14/17 08:22 36.6 C 59 L 16 98/50 L 11/14/17 08:00 36.6 C 66 20 132/62 H 98 11/14/17 04:00 36.5 C 72 20 156/49 H 99 Intake & Output: Intake & Output 11/11/17 11/12/17 11/13/17 11/14/17 23:59 23:59 23:59 23:59 Intake Total 1778.333 100 Output Total 1350 650 Balance 428.333 -550 - Lab Results Fish Bones: 11/14/17 06:40 11/13/17 09:45 Other Labs: Lab Results x24hrs 11/14/17 11/14/17 11/13/17 Range/Units 06:40 00:41 Unknown Hgb 7.2 L 8.0 L (12.0-16.0) g/dL Hct 22.6 L 24.8 L (37.0-47.0) % PT (9.9-12.6) secs INR (0.8-1.2) Urine Color YELLOW Urine Clarity CLOUDY (CLEAR) Urine pH 5.5 (5.0-7.5) PH Ur Specific [place] 1.010 (1.002-1.030) Urine Protein 30 H (NEGATIVE) mg/dL Urine Glucose (UA) NEGATIVE (NEGATIVE) mg/dL Urine Ketones NEGATIVE (NEGATIVE) mg/dL Urine Occult Blood SMALL H (NEGATIVE) Urine Nitrite NEGATIVE (NEGATIVE) Urine Bilirubin NEGATIVE (NEGATIVE) Urine Urobilinogen 0.2 (NORMAL) (NORMAL) E.U./dL Ur Leukocyte Esterase MODERATE H (NEGATIVE) Urine RBC TNTC H (0-5) /HPF Urine WBC >25 H (0-5) /HPF Ur Squamous Epith Cells NONE SEEN (<= Few) Urine Bacteria Rare (None Seen) /HPF Ur Microscopic Review INDICATED Urine Culture Comments INDICATED 11/13/17 11/13/17 11/13/17 Range/Units 18:39 18:39 12:35 Hgb 8.2 L 9.1 L (12.0-16.0) g/dL Hct 25.9 L 27.3 L (37.0-47.0) % PT 11.4 (9.9-12.6) secs INR 1.0 (0.8-1.2) Urine Color Urine Clarity (CLEAR) Urine pH (5.0-7.5) PH Ur Specific [place] (1.002-1.030) Urine Protein (NEGATIVE) mg/dL Urine Glucose (UA) (NEGATIVE) mg/dL Urine Ketones (NEGATIVE) mg/dL Urine Occult Blood (NEGATIVE) Urine Nitrite (NEGATIVE) Urine Bilirubin (NEGATIVE) Urine Urobilinogen (NORMAL) E.U./dL Ur Leukocyte Esterase (NEGATIVE) Urine RBC (0-5) /HPF Urine WBC (0-5) /HPF Ur Squamous Epith Cells (<= Few) Urine Bacteria (None Seen) /HPF Ur Microscopic Review Urine Culture Comments
[2017-11-14] MEDS ORDERED: FAMOTIDINE 20 MG TABLET PO SCH (09:00)
[2017-11-14] MEDS ORDERED: POLYETHYLENE GLYCOL 3350 17 GM PACKET PO SCH (09:00)
[2017-11-14] MEDS: PANTOPRAZOLE 80 MG in SODIUM CHLORIDE 0.9% 100ML 100 ML IV SCH ×2 (09:13→18:38)
[2017-11-14] MEDS: D5.45NS W/20 MEQ KCL 1,000 ML IV SCH (11:59)
[2017-11-14] MEDS: SODIUM CHLORIDE FLUSH 0.9% 10 ML SYRINGE IVP SCH ×2 (12:00→18:36)
[2017-11-14] MEDS: SODIUM/POTASSIUM/MAG SULFATES 354 ML PREP KIT PO SCH ×2 (12:21→14:43)
[2017-11-14] MEDS ORDERED: A & D OINTMENT 5 GM PACKET TOP PRN (15:00)
--- NOTE | 2017-11-14 15:51 | PROVIDER PROGRESS NOTE ---
Subjective - Prog Note Date Prog Note Date: 11/14/17 Prog Note Time: 11:55 - Subjective Pt reports feeling: No change (The patient is somnolent but responsive. She appears weak. She denies any pain or shortness of breath.) Current Medications - Current Medications Current Medications: A D ointment, ceftriaxone, D5W, famotidine, lorazepam, oxycodone, sodium chloride, polyethylene glycol,Temazepam Objective - Vital Signs/Intake & Output Reviewed Vital Signs: Yes Vital Signs: Vital Signs x48h Temp Pulse Pulse Resp BP BP Pulse Ox 11/14/17 14:40 34.6 C L 70 70 20 142/62 H 142/62 H 99 11/14/17 14:15 34.8 C L 70 18 142/52 H 99 11/14/17 11:25 35.4 C L 70 18 130/70 96 11/14/17 11:10 35.4 C L 70 18 130/70 11/14/17 10:56 34.6 C L 65 18 121/50 L 100 11/14/17 08:50 36.3 C L 60 16 109/47 L 100 11/14/17 08:38 36.3 C L 63 16 94/38 L 11/14/17 08:22 36.6 C 59 L 16 98/50 L 11/14/17 08:00 36.6 C 66 20 132/62 H 98 Intake & Output: Intake & Output 11/11/17 11/12/17 11/13/17 11/14/17 23:59 23:59 23:59 23:59 Intake Total 9716.854 1280.333 Output Total 1350 650 Balance 406.064 1575.333 - Objective General Appearance: positive: No acute distress, Lethargic. negative: Anxious Eyes Bilateral: positive: Normal inspection, PERRL, EOMI, No lid inflammation, Conjunctivae nml, No scleral icterus ENT: positive: ENT inspection nml, Pharynx nml, No signs of dehydration Neck: positive: Nml inspection, Thyroid nml, No JVD, Trachea midline. negative : Thyromegaly Respiratory: positive: Chest non-tender, No respiratory distress, Breath sounds nml. negative: Wheezes, Rales, Rhonchi Cardiovascular: positive: Regular rate & rhythm, No murmur, No gallop Abdomen: positive: Non-tender, No organomegaly, Nml bowel sounds, No distention. negative: Guarding, Rebound Back: positive: Nml inspection. negative: CVA tenderness (R), CVA tenderness (L ) Skin: positive: Color nml, No rash, Warm, Dry. negative: Cyanosis Extremities: positive: Non-tender, Full ROM, Nml appearance, No pedal edema Neurologic/Psychiatric: positive: Oriented x3, CN's nml (2-12), Motor nml, Sensation nml, Mood/affect nml - Lab Results Fish Bones: 11/14/17 06:40 11/13/17 09:45 Other Labs: Lab Results x24hrs 11/14/17 11/14/17 11/13/17 Range/Units 06:40 00:41 Unknown Hgb 7.2 L 8.0 L (12.0-16.0) g/dL Hct 22.6 L 24.8 L (37.0-47.0) % PT (9.9-12.6) secs INR (0.8-1.2) Urine Color YELLOW Urine Clarity CLOUDY (CLEAR) Urine pH 5.5 (5.0-7.5) PH Ur Specific [place] 1.010 (1.002-1.030) Urine Protein 30 H (NEGATIVE) mg/dL Urine Glucose (UA) NEGATIVE (NEGATIVE) mg/dL Urine Ketones NEGATIVE (NEGATIVE) mg/dL Urine Occult Blood SMALL H (NEGATIVE) Urine Nitrite NEGATIVE (NEGATIVE) Urine Bilirubin NEGATIVE (NEGATIVE) Urine Urobilinogen 0.2 (NORMAL) (NORMAL) E.U./dL Ur Leukocyte Esterase MODERATE H (NEGATIVE) Urine RBC TNTC H (0-5) /HPF Urine WBC >25 H (0-5) /HPF Ur Squamous Epith Cells NONE SEEN (<= Few) Urine Bacteria Rare (None Seen) /HPF Ur Microscopic Review INDICATED Urine Culture Comments INDICATED 11/13/17 11/13/17 Range/Units 18:39 18:39 Hgb 8.2 L (12.0-16.0) g/dL Hct 25.9 L (37.0-47.0) % PT 11.4 (9.9-12.6) secs INR 1.0 (0.8-1.2) Urine Color Urine Clarity (CLEAR) Urine pH (5.0-7.5) PH Ur Specific [place] (1.002-1.030) Urine Protein (NEGATIVE) mg/dL Urine Glucose (UA) (NEGATIVE) mg/dL Urine Ketones (NEGATIVE) mg/dL Urine Occult Blood (NEGATIVE) Urine Nitrite (NEGATIVE) Urine Bilirubin (NEGATIVE) Urine Urobilinogen (NORMAL) E.U./dL Ur Leukocyte Esterase (NEGATIVE) Urine RBC (0-5) /HPF Urine WBC (0-5) /HPF Ur Squamous Epith Cells (<= Few) Urine Bacteria (None Seen) /HPF Ur Microscopic Review Urine Culture Comments Assessment/Plan - Problem List (1) GI bleed Impression: The patient continues to have large bloody bowel movements and her hemoglobin has dropped over 2 points of last 24 hours. We are doing a bowel prep and the patient will undergo a colonoscopy and endoscopy later on this afternoon. She has been transfused 3 units of packed red blood cells, and we are hopeful that we will find the source of the bleeding. If we cannot the patient will need be transferred. (2) Hypertension Impression: Continue furosemide and metoprolol and Micardis. (3) Congestive heart failure Impression: No evidence of acute exacerbation at this time, continue metoprolol and furosemide. (4) Anxiety and depression Impression: Well-managed, continue Paxil.
[2017-11-14] MEDS ORDERED: LACTATED RINGERS 1,000 ML IV ONE ×2 (17:02→17:20)
[2017-11-14] MEDS ORDERED: ONDANSETRON 4 MG/2 ML VIAL IVP PRN (18:17)
[2017-11-14] MEDS ORDERED: SODIUM CHLORIDE FLUSH 0.9% 10 ML SYRINGE IVP PRN (18:17)
[2017-11-14 18:47] LABS: HGB - HEMOGLOBIN 10.8 g/dL (12.0-16.0)
[2017-11-14 18:57] LABS: CALCIUM 8.8 mg/dL (8.5-10.3); CREATININE 0.7 mg/dL (0.4-1.0); MAGNESIUM 2.2 mg/dL (1.7-2.8)
[2017-11-14] MEDS ORDERED: D5.45NS W/20 MEQ KCL 1,000 ML IV SCH (19:00)
[2017-11-14] MEDS ORDERED: NS W/20 MEQ KCL 1,000 ML IV SCH (19:00)
[2017-11-14 22:13] VITALS: BP 175/76
[2017-11-15] MEDS ORDERED: SODIUM CHLORIDE FLUSH 0.9% 10 ML SYRINGE IVP SCH (01:00)
[2017-11-15] MEDS ORDERED: PANTOPRAZOLE 40 MG VIAL IVP SCH (07:00)
--- NOTE | 2017-11-16 05:49 | DISCHARGE SUMMARY ---
Physician: Zahra Zepeda MD DATE OF ADMISSION: 11/13/2016 DATE OF DISCHARGE: 11/14/2016 HISTORY OF PRESENT ILLNESS: This is an 87-year-old white female with a history of COPD, dementia with recent fall at home, history of diverticulosis found on colonoscopy in 2013. She lives with her son. [facility] a large bloody bowel movement and was admitted for evaluation of this. HOSPITAL COURSE AND DISCHARGE DIAGNOSES 1. Lower gastrointestinal bleed. On the first night of admission, the patient had 3-4 very large bloody bowel movements. With this, her blood pressure did drop from 146/ 60 down to 99 systolic briefly. The following day, she underwent a colonoscopy by Dr. Palmer and he was unable to see any adequate markings because of the amount of blood still in the colon. Following this, the patient still had another bloody bowel movement of approximately 1-1/2 cups. I reached out to [facility], the Gastroenterology department who accepted the patient in transfer on the service of the Hospitalist and she was transferred to [facility] in their IMCU. 2. Anemia due to gastrointestinal blood loss. The patient's admission hemoglobin was 9.9, this dropped to 7.2 at the time of the low blood pressure. She was transfused three units of packed red blood cells with Lasix between units. The hemoglobin at the time of transfer was 10.8. There were two more units of packed red blood cells typed and crossed in case of need. 3. Hypotension. The patient had brief hypotension on the night of her many bloody bowel movements. This was treated with transfusion of blood, as well as crystalloids which improved her blood pressure. During her entire stay here, she was warm and dry and showed no signs of shock or organ dysfunction. 4. Dementia. The patient exhibited signs of dementia, especially "sundowning" on the first evening. She required Ativan. She had a head CT done because of these symptoms that showed changes compatible with aging and no acute findings. 5. Paroxysmal atrial fibrillation. On the second day of admission telemetry showed episodes of paroxysmal atrial fibrillation at a rapid rate in the 150s which would stop spontaneously. These were occasionally over a minute long. These happened innumerably on day # 2. After converting and slowing, there were dual chamber pacing rhythms seen on telemetry. The patient had been unable to give me any history on the night of admission, regarding these rhythm abnormalities or her pacemaker, because of her dementia. 6. Acute urinary tract infection. The routine urinalysis on admission showed small occult blood, moderate leukocyte esterase, many white blood cells and rare bacteria. For this , she was put on empiric IV ceftriaxone 1 gram every 24 hours. There were no symptoms of dysuria that she noted. ALLERGIES: LISINOPRIL. MEDICATIONS AT THE TIME OF TRANSFER 1. D5 0.45% normal saline with 20 mEq of KCl at 100 mL an hour. 2. Ceftriaxone 1 gram IV every 24 hours. 3. Pepcid 20 mg p.o. daily. 4. Lasix 20 mg IV between units of blood transfusions. 5. Benadryl between units of blood transfusions. 6. Tylenol between units of blood transfusions. 7. Magnesium citrate 240 mL x1 had been given. LABORATORY AND IMAGING: Reviewed and summarized above. PHYSICAL EXAMINATION AT TRANSFER GENERAL: Blood pressure 175/76, pulse of 77 in a dual chamber paced rhythm, afebrile, room air saturation 98%. HEENT: Revealed an old ecchymosis of her right periorbital area and upper lip. Moist oral mucosa. NECK: Without JVD or carotid bruits. CHEST: Clear. HEART: Sounds normal. ABDOMEN: Soft, nontender. EXTREMITIES: Without clubbing, cyanosis or edema. NEUROLOGIC: Confusion, but no gross motor deficit. CONDITION AT DISCHARGE: Stable. FOLLOWUP: This will be determined after her stay at [facility]. CODE STATUS: FULL CODE. TIME REQUIRED TO COMPLETE THIS ENTIRE TRANSFER DICTATION: 45 minutes. TD: 11/16/2017 05:48 [facility]
--- NOTE | 2017-11-16 13:46 | PROCEDURE REPORT ---
DATE OF SERVICE: 11/14/2017 Physician: Remi Palmer MD FINAL DIAGNOSIS: Colonoscopy to the cecum, lower gastrointestinal bleeding spot not definitely identified. Strong suspicion of a descending colon area. PROCEDURE PERFORMED: Colonoscopy to the cecum for apparent lower gastrointestinal bleed. INDICATIONS FOR PROCEDURE: This is an elderly woman who came in with an apparent lower GI bleed. She has continued to bleed. They gave her 3 units of packed cells today and requested colonoscopy. We gave her some magnesium citrate and Suprep and I took her to the operating room. I wanted Anesthesia there helping, because this is an extremely elderly lady, somewhat demented, and I felt anesthesia management would be best. The nurse grade recorder kindly agreed to keep her sedated. DESCRIPTION OF PROCEDURE: We put her in the operating room, did our timeout, and then I did a digital anal exam and got red blood coming out on the gloved finger. I put the scope in, the fiberoptic Pentax colonoscope, and gently passed through. As soon as I got into her rectum, I saw blood. I irrigated and suctioned. I got into her rectosigmoid and saw bright red blood with clots. It actually was somewhat difficult maneuvering to her rectosigmoid because of all of blood. I irrigated and suctioned as much as I could and really could not clear it. I felt that we should keep going as long as I could see a lumen. She did have a fair amount of diverticula in the rectosigmoid and in the sigmoid and was able to get over to the transverse colon. She still had some blood in the transverse colon, and down on her right colon, things looked pretty darn clean. I think there is a little bit of wash back there. We got to the cecum, irrigated, suctioned and saw nothing coming out of the ileocecal valve and gently withdrew the scope. I am quite sure that she is bleeding somewhere in her left colon. I never saw a bleeding source. There was way too much blood. At that point, I again withdrew the scope, looking at as many mucosal surfaces as possible. I did not encounter a definite bleeding source, which I am convinced is coming from somewhere from her distal transverse down to her rectum. I had the discussion with the hospitalist and the patient's family afterward about options. If they went to keep her here and see if she quits, that is one position to take. If she continues to bleed, family will have to decide whether or not they want her to be on comfort measures or they want further interventions. They have decided that they do want her to have further interventions to try to stop this. I then discussed with them the fact that further intervention here would probably be a laparotomy and a true hemicolectomy with a stoma. There are places that might be able to definitively identify the bleeding site, possibly with angiography and embolize it or some type of bleeding scan, and we certainly do not have that technology here. In addition, if she were to require surgical intervention, other places might try to do it with a laparoscope. I could not do it with a laparoscope. Based on all that information, they have elected to choose for transfer out. I will pass that on to the hospitalist and hopefully they can affect a transfer in a timely fashion. Apparently the hospitalist was quite busy. I will stick around and when they have shift change, talk to the new shift hospitalist. I suspect that the patient, if she gets transferred, should go south, either toward [place] or [place] where I am pretty sure they have got interventionalist high quality GI medicine, high quality hospitalists, and everybody that have added technology to try to take care of this problem without a great big operation, which in this elderly lady with moderate dementia, probably would be in her best interest to minimize complications. All in all, the family is quite understanding and thankful. The hospitalist is working real hard. I will let the dust settle for a while and then go back and talk to him. Final diagnosis was colonoscopy to the cecum, lower GI bleeding spot not definitely identified. Strong suspicion of a descending colon area. We wish everybody luck with the care of this lady and her nice family. TD: 11/15/2017 00:57
== END 2017-11-14 22:20 | disposition short-term general hospital (02) | DRG 378 ==
LOC: EDUNIT# → ED 09:27 → MS2 11:39
PROVIDERS: ADMIT Hospitalist; ATTEND Hospitalist
PROC: 30253N1 (ICD-10-PCS; 2017-11-14)
PROC: 0DJD8ZZ Inspection of Lower Intestinal Tract, Via Natural or Artificial Opening Endoscopic (ICD-10-PCS; principal; 2017-11-14 17:00)
DX: K57.31 Diverticulosis of large intestine without perforation or abscess with bleeding (principal); E86.9 Volume depletion, unspecified; D62 Acute posthemorrhagic anemia; N39.0 Urinary tract infection, site not specified; J44.9 Chronic obstructive pulmonary disease, unspecified; E78.00 Pure hypercholesterolemia, unspecified; F03.90 Unspecified dementia, unspecified severity, without behavioral disturbance, psychotic disturbance, mood disturbance, and anxiety; I95.9 Hypotension, unspecified; I49.9 Cardiac arrhythmia, unspecified; I48.0 Paroxysmal atrial fibrillation; I25.119 Atherosclerotic heart disease of native coronary artery with unspecified angina pectoris; I11.0 Hypertensive heart disease with heart failure; I50.9 Heart failure, unspecified; E03.9 Hypothyroidism, unspecified; K21.9 Gastro-esophageal reflux disease without esophagitis; F32.9 Major depressive disorder, single episode, unspecified; F41.9 Anxiety disorder, unspecified; M19.90 Unspecified osteoarthritis, unspecified site; W01.0XXD Fall on same level from slipping, tripping and stumbling without subsequent striking against object, subsequent encounter; Z96.659 Presence of unspecified artificial knee joint; S00.83XD Contusion of other part of head, subsequent encounter; Z79.82 Long term (current) use of aspirin; Z79.899 Other long term (current) drug therapy; Z91.81 History of falling; Z86.718 Personal history of other venous thrombosis and embolism; Z95.0 Presence of cardiac pacemaker
CPT/HCPCS: 36415; 70450; 71045; 74177; 80048; 80053; 81001; 81003; 83690; 83735; 84484; 85014; 85018; 85025; 85610; 85730; 86850; 86900; 86901; 86920; 87077; 87086; 96361; 96374; 99283; 99284; 99285

== ENCOUNTER 2017-11-14 22:30 | Outpatient (CLI) | payer MEDICARE, OTHER | END 2017-11-14 22:31 | disposition short-term general hospital (02) | LOC: EMS 22:30 | PROVIDERS: ATTEND Surgery | DX: K92.1 Melena (principal) | CPT/HCPCS: A0170; A0425; A0426 ==

== ENCOUNTER 2017-11-24 08:00 | Outpatient (CLI) | payer MEDICARE, OTHER ==
[2017-11-24 19:04] LABS: BASOPHILS % (AUTO) 0.6 %; EOSINOPHILS # (AUTO) 0.1 10^3/uL (0.0-0.7); EOSINOPHILS % (AUTO) 1.7 %; LYMPHOCYTES # (AUTO) 1.2 10^3/uL (1.5-3.5); LYMPHOCYTES % (AUTO) 16.4 %; MEAN CORPUSCULAR HGB CONC 32.9 g/dL (32.0-36.0); MEAN CORPUSCULAR VOLUME 94.4 fL (81.0-99.0); MEAN PLATELET VOLUME 9.3 fL (7.9-10.8); MONOCYTES # (AUTO) 0.4 10^3/uL (0.0-1.0); MONOCYTES % (AUTO) 5.7 %; NEUTROPHILS # (AUTO) 5.4 10^3/uL (1.5-6.6); NEUTROPHILS % (AUTO) 75.6 %; PLT - PLATELET COUNT 255 10^3/uL (130-450); RED CELL DISTRIBUTION WIDTH 16.1 % (12.0-15.0); WHITE BLOOD COUNT 7.1 x10^3/uL (4.8-10.8)
[2017-11-24 19:21] LABS: ALBUMIN 3.6 g/dL (3.2-5.5); ALBUMIN/GLOBULIN RATIO 1.5 (1.0-2.2); ALKALINE PHOSPHATASE 58 IU/L (42-121); ALT ALANINE AMINOTRANSFERASE < 10 IU/L (10-60); AST ASPARTATE AMINOTRANSFERASE 18 IU/L (10-42); BILIRUBIN,TOTAL 0.5 mg/dL (0.2-1.0); BUN - BLOOD UREA NITROGEN 21 mg/dL (6-20); CALCIUM 8.5 mg/dL (8.5-10.3); CARBON DIOXIDE - CO2 24 mmol/L (21-32); CHLORIDE 104 mmol/L (101-111); CREATININE 0.9 mg/dL (0.4-1.0); GFR - MDRD 59 (>89); GLUCOSE 118 mg/dL (70-100); SODIUM 136 mmol/L (135-145)
[2017-11-24 19:36] LABS: FERRITIN 26.5 ng/mL (11.0-306.8)
== END 2017-11-24 08:01 ==
LOC: LAB.WCP 08:00
PROVIDERS: ATTEND Family Medicine
DX: K92.2 Gastrointestinal hemorrhage, unspecified (principal)
CPT/HCPCS: 36415; 80053; 82607; 82728; 85025

== ENCOUNTER 2017-11-25 09:00 | Outpatient (CLI) | payer MEDICARE, OTHER ==
[2017-11-25 19:03] LABS: BILIRUBIN,URINE NEGATIVE (NEGATIVE); GLUCOSE, URINE (UA) NEGATIVE (NEGATIVE); KETONES,URINE (UA) NEGATIVE (NEGATIVE); LEUKOCYTE ESTERASE, URINE NEGATIVE (NEGATIVE); NITRITE,URINE NEGATIVE (NEGATIVE); OCCULT BLOOD,URINE NEGATIVE (NEGATIVE); PROTEIN,URINE NEGATIVE (NEGATIVE); UROBILINOGEN,URINE 0.2 (NORMAL) E.U./dL (NORMAL)
[2017-11-25 19:04] LABS: CLARITY,URINE CLEAR (CLEAR)
[2017-11-25 19:12] LABS: BACTERIA,URINE Rare /HPF (None Seen); RBC,URINE 0-5 /HPF (0-5); SQUAMOUS EPITHELIAL CELL,UR MOD Squamous (<= Few)
== END 2017-11-25 09:01 ==
LOC: LAB.WCP 09:00
PROVIDERS: ATTEND Family Medicine
DX: N39.0 Urinary tract infection, site not specified (principal)
CPT/HCPCS: 81001; 87086

== ENCOUNTER 2018-07-21 10:57 | Emergency (ER) | payer MEDICARE, OTHER ==
[2018-07-21 11:29] LABS: BASOPHILS % (AUTO) 0.7 %; EOSINOPHILS # (AUTO) 0.1 10^3/uL (0.0-0.7); EOSINOPHILS % (AUTO) 1.1 %; HGB - HEMOGLOBIN 13.2 g/dL (12.0-16.0); LYMPHOCYTES # (AUTO) 0.9 10^3/uL (1.5-3.5); MEAN CORPUSCULAR HEMOGLOBIN 30.8 pg (27.0-31.0); MEAN CORPUSCULAR VOLUME 90.6 fL (81.0-99.0); MEAN PLATELET VOLUME 8.6 fL (7.9-10.8); MONOCYTES # (AUTO) 0.4 10^3/uL (0.0-1.0); MONOCYTES % (AUTO) 7.9 %; NEUTROPHILS % (AUTO) 73.3 %; PLT - PLATELET COUNT 172 10^3/uL (130-450); RED BLOOD COUNT 4.28 10^6/uL (4.20-5.40); WHITE BLOOD COUNT 5.4 x10^3/uL (4.8-10.8)
[2018-07-21 11:38] LABS: ALBUMIN 4.4 g/dL (3.2-5.5); ALBUMIN/GLOBULIN RATIO 1.7 (1.0-2.2); BILIRUBIN,TOTAL 0.8 mg/dL (0.2-1.0); CALCIUM 9.2 mg/dL (8.5-10.3); CREATININE 0.8 mg/dL (0.4-1.0)
--- NOTE | 2018-07-21 12:20 | ED Physician Documentation ---
History of Present Illness - Stated complaint Stated Complaint: HIGH BP - Chief complaint Chief Complaint: Cardiac - History obtained from History obtained from: Family - History of Present Illness Timing: Yesterday Pain level max: 0 Pain level now: 0 - Additonal information Additional information: 88-year-old female with history of hypertension, Hysterectomy and pacemaker for irregular heartbeats here with complaint of uncontrolled blood pressure for a week now. Yesterday at about 6:25 PM patient was complaining of dizziness and her blood pressure then was 207/124 which slowly came down by itself to 198/94. Today patient was feeling dizzy, weak with tingling all over. Son took her blood pressure and was 223/108. Patient is denying any headaches, double vision, chest pain, shortness of breath. Patient stated that she was feeling some burning pain at her suprapubic area. Denies any dysuria, frequency or hematuria. She stated she had a bladder lift a year ago in [place]. Review of Systems Ten Systems: 10 systems reviewed and negative Constitutional: denies: Fever, Myalgias Eyes: denies: Decreased vision Ears: denies: Tinnitus/ringing Throat: denies: Sore throat Cardiac: denies: Chest pain / pressure, Palpitations Respiratory: denies: Dyspnea, Cough GI: reports: Abdominal Pain. denies: Abdominal Swelling, Nausea, Vomiting, Constipation, Diarrhea, Bloody / black stool : denies: Dysuria, Frequency, Incontinent, Hematuria Musculoskeletal: denies: Neck pain, Back pain, Extremity pain Neurologic: reports: Generalized weakness. 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 : None HEENT: None Psych: Depression, Anxiety Musculoskeletal: Osteoarthritis Derm: None - Past Surgical History Past Surgical History: Yes General: Colonoscopy, Other Ortho: Knee replacement /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 DISTRIBUTOR OPERATOR: Hysterectomy Cardiovascular: Pacemaker, Vascular surgery - Present Medications Home Medications: Ambulatory Orders Medication Instructions Recorded Confirmed Levothyroxine Sodium [Levoxyl] 75 mcg PO QPM 01/16/13 12/11/17 PARoxetine [Paxil] 20 mg PO DAILY 01/16/13 12/11/17 Telmisartan [Micardis] 40 mg PO BID 01/16/13 12/11/17 Furosemide 20 mg PO DAILY PRN 10/27/15 12/11/17 LORazepam [Ativan] 0.5 mg PO BID PRN 09/01/16 12/11/17 Metoprolol Tartrate 50 mg PO BID 11/13/17 12/11/17 Pantoprazole Sodium [Protonix] 07/21/18 07/21/18 - Allergies Allergies/Adverse Reactions: Allergies Allergy/AdvReac Type Severity Reaction Status Date / Time lisinopril AdvReac Respiratory Verified 07/21/18 11:08 - Social History Does the pt smoke?: No Smoking Status: Never smoker Does the pt drink ETOH?: Yes Does the pt have substance abuse?: No - Immunizations Immunizations are current?: Yes - POLST Patient has POLST: Yes POLST Status: Full Code PD ED PE NORMAL - Vitals Vital signs reviewed: Yes - General General: Alert and oriented X 3, No acute distress, Well developed/nourished - HEENT HEENT: PERRL, EOMI, Ears normal, Moist mucous membranes, Pharynx benign - Neck Neck: Supple, no meningeal sign, No bony TTP - Cardiac Cardiac: RRR, No murmur - Respiratory Respiratory: No respiratory distress, Clear bilaterally - Abdomen Abdomen: Normal bowel sounds, Soft, Non tender, Non distended - Back Back: No CVA TTP, No spinal TTP - Derm Derm: Normal color, Warm and dry, No rash - Extremities Extremities: No deformity, No tenderness to palpate, Normal ROM s pain, No edema - Neuro Neuro: Alert and oriented X 3, boom cat operator 2-12 intact, No motor deficit, No sensory deficit, Normal speech - Psych Psych: Normal mood, Normal affect Results - Vitals Vitals: Vital Signs - 24 hr 07/21/18 07/21/18 07/21/18 11:04 12:00 15:15 Temperature 36.7 C Heart Rate 116 H 105 H Heart Rate [ 62 Sitting] Heart Rate [ 63 Standing] Heart Rate [ 60 Supine] Respiratory 16 14 Rate Blood Pressure 165/96 H 160/83 H Blood Pressure 160/76 H [Sitting] Blood Pressure 109/62 [Standing] Blood Pressure 179/78 H [Supine] O2 Saturation 97 95 Oxygen O2 Source Room air - EKG (time done) 1119 Rate: Rate (enter#) (106) Rhythm: Sinus tachycardia, Paced Lookout: LAD Ischemia: Other (LVH) - Labs Labs: Laboratory Tests 07/21/18 07/21/18 07/21/18 11:20 11:20 11:20 WBC 5.4 RBC 4.28 Hgb 13.2 Hct 38.8 MCV 90.6 MCH 30.8 MCHC 34.0 RDW 14.0 Plt Count 172 MPV 8.6 Neut # (Auto) 4.0 Lymph # (Auto) 0.9 L Burke # (Auto) 0.4 Eos # (Auto) 0.1 Baso # (Auto) 0.0 Absolute Nucleated RBC 0.00 Nucleated RBC % 0.0 Sodium 136 Potassium 3.7 Chloride 99 L Carbon Dioxide 29 Anion Gap 8.0 BUN 17 Creatinine 0.8 Estimated GFR (MDRD) 68 L Glucose 99 Calcium 9.2 Total Bilirubin 0.8 AST 19 ALT 11 Alkaline Phosphatase 63 Troponin I < 0.04 Total Protein 7.0 Albumin 4.4 Globulin 2.6 Albumin/Globulin Ratio 1.7 Lipase 27 Urine Color Urine Clarity Urine pH Ur Specific [place] Urine Protein Urine Glucose (UA) Urine Ketones Urine Occult Blood Urine Nitrite Urine Bilirubin Urine Urobilinogen Ur Leukocyte Esterase Ur Microscopic Review Urine Culture Comments 07/21/18 12:21 WBC RBC Hgb Hct MCV MCH MCHC RDW Plt Count MPV Neut # (Auto) Lymph # (Auto) Burke # (Auto) Eos # (Auto) Baso # (Auto) Absolute Nucleated RBC Nucleated RBC % Sodium Potassium Chloride Carbon Dioxide Anion Gap BUN Creatinine Estimated GFR (MDRD) Glucose Calcium Total Bilirubin AST ALT Alkaline Phosphatase Troponin I Total Protein Albumin Globulin Albumin/Globulin Ratio Lipase Urine Color YELLOW Urine Clarity CLEAR Urine pH 7.0 Ur Specific [place] 1.015 Urine Protein NEGATIVE Urine Glucose (UA) NEGATIVE Urine Ketones NEGATIVE Urine Occult Blood TRACE-LYSE Urine Nitrite NEGATIVE Urine Bilirubin NEGATIVE Urine Urobilinogen 0.2 (NORMAL) Ur Leukocyte Esterase NEGATIVE Ur Microscopic Review NOT INDICATED Urine Culture Comments NOT INDICATED PD MEDICAL DECISION MAKING - ED course Complexity details: reviewed results, re-evaluated patient, considered differential (Uncontrolled hypertension, vertigo, intracranial bleed, electrolyte imbalance, UTI, bowel obstruction, AAA), d/w patient, d/w family ED course: 8660 patient and family informed of test results. Patient is requesting for crackers and apple juice. Agreed to orthostatic vital signs. Patient expressed desire to go home. 1500 patient tolerated food. Orthostatics showed that with standing patient's blood pressure decrease and patient complained of some dizziness. But patient continued to want to go home with her son. Agreed to saline IV fluids prior to discharge. Discussed safety with patient and emphasized to her that she needs to call her son prior to getting out of bed or when she is feeling dizzy she needs to stop and rest instead of continuing to ambulate. Per son patient gets stubborn and is very active wanting to clean the house even if she does not have to.1600 patient wanting to go home now. Departure - Departure Disposition: 01 Home, Self Care Clinical Impression: Dizziness, Vertigo Hypertension Qualifiers: Hypertension type: essential hypertension Qualified Code(s): I10 - Essential (primary) hypertension Condition: Stable Instructions: ED Dizziness UKO, ED HTN Established Comments: Maintain safety. You have to ask assistance from your son when you are feeling dizzy. Get up slowly. Follow-up with your primary doctor this week for reevaluation of your blood pressure and blood pressure medications. If worse return to the emergency room.
[2018-07-21 12:30] LABS: BILIRUBIN,URINE NEGATIVE (NEGATIVE); GLUCOSE, URINE (UA) NEGATIVE (NEGATIVE); KETONES,URINE (UA) NEGATIVE (NEGATIVE); LEUKOCYTE ESTERASE, URINE NEGATIVE (NEGATIVE); NITRITE,URINE NEGATIVE (NEGATIVE); OCCULT BLOOD,URINE TRACE-LYSE (NEGATIVE); PROTEIN,URINE NEGATIVE (NEGATIVE); UROBILINOGEN,URINE 0.2 (NORMAL) E.U./dL (NORMAL)
[2018-07-21 12:32] LABS: CLARITY,URINE CLEAR (CLEAR)
[2018-07-21] MEDS ORDERED: IOVERSOL 320 100 ML VIAL IVP ONE ×2 (13:16→13:35)
--- NOTE | 2018-07-21 13:45 | CT Report ---
Reason: dizzy Procedure Date: 07/21/2018 Accession Number: [id number] / [id number] Procedure: CT - Head W/O CPT Code: FULL RESULT: EXAM: CT HEAD EXAM DATE: 07/21/2018 01:26 PM. CLINICAL HISTORY: Dizzy. COMPARISON: HEAD W/O STROKE PROTOCOL 11/14/2017 2:44 AM. TECHNIQUE: Multiaxial CT images were obtained from the foramen magnum to the vertex. Reformats: Sagittal and coronal. IV contrast: None. In accordance with CT protocol optimization, one or more of the following dose reduction techniques were utilized for this exam: automated exposure control, adjustment of mA and/or KV based on patient size, or use of iterative reconstructive technique. FINDINGS: Parenchyma: No intraparenchymal hemorrhage. No evidence of mass, midline shift, or CT findings of infarction. Grider-white differentiation is distinct. Extraaxial Spaces: Normal for age. No subdural or epidural collections identified. Ventricles: Normal in size and position. Sinuses and Orbits: Imaged paranasal sinuses, orbits, and mastoids show no significant abnormality. Bones: No evidence of fracture or calvarial defect. Other: None. IMPRESSION: No acute intracranial abnormality. RADIA
--- NOTE | 2018-07-21 13:59 | CT Report ---
Reason: pain Procedure Date: 07/21/2018 Accession Number: [id number] / [id number] Procedure: CT - Abdomen/Pelvis W/ CPT Code: FULL RESULT: EXAM: CT ABDOMEN AND PELVIS EXAM DATE: 07/21/2018 01:34 PM. CLINICAL HISTORY: Pain with history of diverticulitis. Weakness and diarrhea. COMPARISONS: ABDOMEN/PELVIS W/ 11/13/2017 6:13 AM. TECHNIQUE: Routine helical CT imaging was performed through the abdomen and pelvis. IV contrast: ISOVUE 300 90mL. Enteric contrast: No. Reconstructions: Coronal and sagittal. In accordance with CT protocol optimization, one or more of the following dose reduction techniques were utilized for this exam: automated exposure control, adjustment of mA and/or KV based on patient size, or use of iterative reconstructive technique. FINDINGS: Lung Bases: Unremarkable. Liver: Normal. No masses. Gallbladder/Bile Ducts: There are gallstones in the gallbladder. Spleen: Normal. Pancreas: Normal. Adrenal Glands: Normal. Kidneys: No renal mass or hydronephrosis. Peritoneal Cavity/Bowel: There are a moderate number of diverticula within the colon. No focal colonic wall thickening. No localizing fat stranding. No abnormal fluid or gas collection. The small bowel is normal in caliber. Pelvic Organs: Urinary bladder is unremarkable. Uterus not visualized. Vasculature: There is moderate calcification of the thoracic aorta and bilateral iliac arteries. There is an arterial venous malformation in the low left adnexa of the pelvis. There is a dilated branch of the left external iliac artery which measures 7 mm in diameter extending to a nidus of enhancing vessels with a prominent asymmetric early enhancement of a draining vein, draining into the left internal iliac venous system. This finding is unchanged. Bones: There is a mild compression deformity of the superior L1 vertebral body. Other: None. IMPRESSION: 1. Moderate colonic diverticulosis without localizing acute diverticulitis. 2. Gallstones without findings of acute cholecystitis. 3. No acute localizing inflammatory process identified. 4. 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 RADIA
[2018-07-21] MEDS ORDERED: SODIUM CHLORIDE 0.9% 500 ML IV ONE (15:26)
[2018-07-21 16:14] VITALS: BP 196/90
== END 2018-07-21 16:30 | disposition home or self-care (01) ==
LOC: ED 10:57
DX: R42 Dizziness and giddiness (principal); I10 Essential (primary) hypertension; R00.0 Tachycardia, unspecified; E03.9 Hypothyroidism, unspecified; E78.00 Pure hypercholesterolemia, unspecified; I25.10 Atherosclerotic heart disease of native coronary artery without angina pectoris; Z96.659 Presence of unspecified artificial knee joint; Z95.0 Presence of cardiac pacemaker; Z86.718 Personal history of other venous thrombosis and embolism
CPT/HCPCS: 36415; 70450; 74177; 80053; 81003; 83690; 84484; 85025; 93005; 99283; 99284; Q9967; 81001; 87086

== ENCOUNTER 2018-09-24 11:46 | Observation (INO) | payer MEDICARE, OTHER ==
--- NOTE | 2018-09-24 12:04 | ED Physician Documentation ---
PD HPI CHEST PAIN - Stated complaint Stated Complaint: HIGH BP/CONFUSION - Chief complaint Chief Complaint: Cardiac - History obtained from History obtained from: Patient - History of Present Illness Timing - onset: How many days ago (has noted BP to be elevated above her usual 140-150 systolic over the past several days. Heart rate higher at 80-100, usually 60 paced. Has been feeling some dizzy/off balance. No focal weaknesses. No headache. Had chest pain episode yesterday improved with NTG. Uses that rarely. Was feeling anxious today and some gave dose of Ativan which is a PRN med. She is feeling much better with that. BP is better here. Heart rate still some elevated at 80-100.) Timing - onset during: Rest Timing - duration: Minutes Timing - details: Gradual onset, Now resolved Quality: Tightness. No: Pressure, Sharp Location: Substernal, Left chest Radiation: No: Jaw, Neck Improved by: Nitro Worsened by: No: Inspiration, Movement Associated symptoms: Feeling faint / dizzy, General Weakness. No: Shortness of air, Nausea, Palpitations, Cough Similar symptoms before: Diagnosis (high blood pressure, anxiety and irregular heart beat in the past. Not clearly had CAD, denies stents/MO.) Recently seen: Clinic (had Clonidine changed from daily PO to a weekly patch 2 weeks ago. BP seemed okay the first week with it.) Review of Systems Constitutional: denies: Fever, Chills, Myalgias Eyes: denies: Loss of vision Nose: denies: Rhinorrhea / runny nose, Congestion Throat: denies: Sore throat Cardiac: reports: Chest pain / pressure (yesterday, without exertion, relieved by NTG x 2. Uses that infrequently. Has also felt anxious and dizzy/off balance.) Respiratory: denies: Cough GI: reports: Other (less appetite). denies: Abdominal Pain, Nausea, Vomiting, Diarrhea : denies: Dysuria, Frequency Musculoskeletal: denies: Extremity swelling PD PAST MEDICAL HISTORY - Past Medical History Cardiovascular: Hypertension, High cholesterol, Coronary artery disease, Deep vein thrombosis, Angina, Arrhythmia Respiratory: Shortness of breath Endocrine/Autoimmune: HyPOthyroidism GI: GERD, GI bleed, Diverticulitis SOCIAL MEDIA MANAGER: None : None HEENT: None Psych: Depression, Anxiety Musculoskeletal: Osteoarthritis Derm: None - Past Surgical History Past Surgical History: Yes General: Colonoscopy, Other Ortho: Knee replacement /SOCIAL MEDIA MANAGER: Hysterectomy Cardiovascular: Pacemaker, Vascular surgery - Present Medications Home Medications: Ambulatory Orders Medication Instructions Recorded Confirmed Levothyroxine Sodium [Levoxyl] 75 mcg PO QPM 01/16/13 09/24/18 PARoxetine [Paxil] 20 mg PO DAILY 01/16/13 09/24/18 Telmisartan [Micardis] 40 mg PO BID 01/16/13 09/24/18 LORazepam [Ativan] 0.5 mg PO BID PRN 09/01/16 09/24/18 Metoprolol Tartrate 50 mg PO BID 11/13/17 09/24/18 Pantoprazole Sodium [Protonix] 40 mg PO DAILY 07/21/18 09/24/18 cloNIDine 0.2 MG PATCH 1 patch TOP DAILY 09/24/18 09/24/18 [[id number]] - Allergies Allergies/Adverse Reactions: Allergies Allergy/AdvReac Type Severity Reaction Status Date / Time fluconazole [From Diflucan] Allergy Unknown Verified 09/24/18 11:56 naproxen [From Aleve] Allergy Unknown Verified 09/24/18 11:56 nitrofurantoin Allergy Unknown Verified 09/24/18 11:56 [From Macrobid] lisinopril AdvReac Respiratory Verified 09/24/18 11:56 - Living Situation Living Situation: reports: With family (son) Living Arrangement: reports: At home - Social History Does the pt smoke?: No Smoking Status: Never smoker Does the pt drink ETOH?: Yes Does the pt have substance abuse?: No - Family History Family history: reports: Non contributory - Immunizations Immunizations are current?: Yes - POLST Patient has POLST: Yes POLST Status: Full Code PD ED PE NORMAL - Vitals Vital signs reviewed: Yes - General General: Alert and oriented X 3, No acute distress, Well developed/nourished - HEENT HEENT: Ears normal, Moist mucous membranes, Pharynx benign - Neck Neck: Supple, no meningeal sign, No adenopathy - Cardiac Cardiac: RRR, No murmur - Respiratory Respiratory: No respiratory distress, Clear bilaterally - Abdomen Abdomen: Normal bowel sounds, Soft, Non tender, Non distended - Back Back: No CVA TTP - Derm Derm: Normal color, Warm and dry - Extremities Extremities: No deformity, No tenderness to palpate, Normal ROM s pain, No edema, No calf tenderness / cord - Neuro Neuro: Alert and oriented X 3, sales account representative 2-12 intact, No motor deficit, No sensory deficit, Normal speech - Psych Psych: Normal mood. No: Normal affect (slightly anxious) Results - Vitals Vitals: Vital Signs - 24 hr 09/24/18 09/24/18 09/24/18 11:53 12:23 12:45 Temperature 36.6 C Heart Rate 106 H 106 H 104 H Respiratory 16 20 18 Rate Blood Pressure 174/97 H 144/72 H 126/76 O2 Saturation 99 95 96 09/24/18 09/24/18 12:50 14:32 Temperature Heart Rate 60 106 H Respiratory 18 20 Rate Blood Pressure 155/76 H 156/97 H O2 Saturation 97 96 Oxygen O2 Source Room air - EKG (time done) 11:07 Rate: Rate (enter#) (110) Rhythm: Sinus tachycardia [place]: Normal Intervals: Normal MI QRS: Normal Ischemia: Normal ST segments. No: ST elevation c/w ischemia, ST depression Compare to prior EKG: Unchanged from prior EKG (compared with 07/21/2018) - Labs Labs: Laboratory Tests 09/24/18 09/24/18 09/24/18 12:30 12:30 12:30 WBC 5.3 RBC 3.91 L Hgb 12.2 Hct 35.2 L MCV 90.1 MCH 31.2 H MCHC 34.6 RDW 14.3 Plt Count 152 MPV 8.7 Neut # (Auto) 3.9 Lymph # (Auto) 0.8 L [place] # (Auto) 0.4 Eos # (Auto) 0.1 Baso # (Auto) 0.0 Absolute Nucleated RBC 0.00 Nucleated RBC % 0.0 Sodium 133 L Potassium 3.8 Chloride 100 L Carbon Dioxide 26 Anion Gap 7.0 BUN 19 Creatinine 0.7 Estimated GFR (MDRD) 79 L Glucose 108 H Calcium 8.7 Magnesium 2.2 Total Bilirubin 0.3 AST 20 ALT 11 Alkaline Phosphatase 60 Troponin I 0.24 B-Natriuretic Peptide Total Protein 6.3 L Albumin 3.6 Globulin 2.7 Albumin/Globulin Ratio 1.3 Lipase 31 Urine Color Urine Clarity Urine pH Ur Specific [place] Urine Protein Urine Glucose (UA) Urine Ketones Urine Occult Blood Urine Nitrite Urine Bilirubin Urine Urobilinogen Ur Leukocyte Esterase Urine RBC Urine WBC Ur Squamous Epith Cells Urine Bacteria Ur Microscopic Review Urine Culture Comments 09/24/18 09/24/18 09/24/18 13:41 14:14 14:14 WBC RBC Hgb Hct MCV MCH MCHC RDW Plt Count MPV Neut # (Auto) Lymph # (Auto) [place] # (Auto) Eos # (Auto) Baso # (Auto) Absolute Nucleated RBC Nucleated RBC % Sodium Potassium Chloride Carbon Dioxide Anion Gap BUN Creatinine Estimated GFR (MDRD) Glucose Calcium Magnesium Total Bilirubin AST ALT Alkaline Phosphatase Troponin I 0.27 B-Natriuretic Peptide 242 H Total Protein Albumin Globulin Albumin/Globulin Ratio Lipase Urine Color YELLOW Urine Clarity CLEAR Urine pH 7.0 Ur Specific [place] 1.010 Urine Protein NEGATIVE Urine Glucose (UA) NEGATIVE Urine Ketones NEGATIVE Urine Occult Blood TRACE-INTA Urine Nitrite NEGATIVE Urine Bilirubin NEGATIVE Urine Urobilinogen 0.2 (NORMAL) Ur Leukocyte Esterase TRACE H Urine RBC 0-5 Urine WBC 0-3 Ur Squamous Epith Cells RARE Squamous Urine Bacteria None Seen Ur Microscopic Review INDICATED Urine Culture Comments INDICATED PD MEDICAL DECISION MAKING - ED course Complexity details: reviewed results, considered differential (has some dizziness, similar to last Nov. this may be elevating BP and heart rate. Can check troponin, Creatinine, lytes, UA. Do not think we need imaging. ), d/w patient, d/w family (son), d/w cancer program consultant (Talked with Dr. Umana, cardiology at [facility] who is her provider. He did not feel that likely that she had an acute occlusive process but was wondering more about a demand ischemia with a high blood pressure. He felt she did deserve rule out MO and perhaps evaluation with stress or echo. However he did not feel reason for transfer. He will be faxing his office notes as well as the most recent echo from 2016 and heart cath from 2011.), other (Talked with Dr. Gill who is on for hospitalist and will continue care of the patient.) Departure - Departure Disposition: ED Place in Observation Clinical Impression: Anxiety, Chest pain at rest, Chest pain, rule out acute myocardial infarction High blood pressure Qualifiers: Hypertension type: essential hypertension Qualified Code(s): I10 - Essential (primary) hypertension Condition: Stable Record reviewed to determine appropriate education?: Yes
[2018-09-24] MEDS ORDERED: METOPROLOL 5 MG/5 ML VIAL IVP STA (12:28)
[2018-09-24] MEDS ORDERED: MECLIZINE 12.5 MG TABLET PO STA (12:28)
[2018-09-24] MEDS ORDERED: SODIUM CHLORIDE 0.9% 500 ML IV ONE (12:28)
[2018-09-24 12:42] LABS: BASOPHILS % (AUTO) 0.4 %; EOSINOPHILS # (AUTO) 0.1 10^3/uL (0.0-0.7); EOSINOPHILS % (AUTO) 1.4 %; HGB - HEMOGLOBIN 12.2 g/dL (12.0-16.0); LYMPHOCYTES # (AUTO) 0.8 10^3/uL (1.5-3.5); MEAN CORPUSCULAR HEMOGLOBIN 31.2 pg (27.0-31.0); MEAN CORPUSCULAR HGB CONC 34.6 g/dL (32.0-36.0); MEAN CORPUSCULAR VOLUME 90.1 fL (81.0-99.0); MEAN PLATELET VOLUME 8.7 fL (7.9-10.8); MONOCYTES # (AUTO) 0.4 10^3/uL (0.0-1.0); MONOCYTES % (AUTO) 7.4 %; NEUTROPHILS # (AUTO) 3.9 10^3/uL (1.5-6.6); NEUTROPHILS % (AUTO) 74.8 %; PLT - PLATELET COUNT 152 10^3/uL (130-450); RED BLOOD COUNT 3.91 10^6/uL (4.20-5.40); RED CELL DISTRIBUTION WIDTH 14.3 % (12.0-15.0); WHITE BLOOD COUNT 5.3 x10^3/uL (4.8-10.8)
[2018-09-24 12:54] LABS: ALBUMIN 3.6 g/dL (3.2-5.5); ALBUMIN/GLOBULIN RATIO 1.3 (1.0-2.2); BILIRUBIN,TOTAL 0.3 mg/dL (0.2-1.0); CALCIUM 8.7 mg/dL (8.5-10.3); CREATININE 0.7 mg/dL (0.4-1.0); MAGNESIUM 2.2 mg/dL (1.7-2.8); TOTAL PROTEIN 6.3 g/dL (6.7-8.2)
[2018-09-24 13:51] LABS: BILIRUBIN,URINE NEGATIVE (NEGATIVE); GLUCOSE, URINE (UA) NEGATIVE (NEGATIVE); KETONES,URINE (UA) NEGATIVE (NEGATIVE); LEUKOCYTE ESTERASE, URINE TRACE (NEGATIVE); NITRITE,URINE NEGATIVE (NEGATIVE); OCCULT BLOOD,URINE TRACE-INTA (NEGATIVE); PROTEIN,URINE NEGATIVE (NEGATIVE); UROBILINOGEN,URINE 0.2 (NORMAL) E.U./dL (NORMAL)
[2018-09-24 13:55] LABS: CLARITY,URINE CLEAR (CLEAR)
[2018-09-24 14:11] LABS: BACTERIA,URINE None Seen /HPF (None Seen); RBC,URINE 0-5 /HPF (0-5); SQUAMOUS EPITHELIAL CELL,UR RARE Squamous (<= Few)
--- NOTE | 2018-09-24 14:47 | XRAY Report ---
Reason: chest pain Procedure Date: 09/24/2018 Accession Number: [id number] / [id number] Procedure: XR - Chest 1 View X-Ray CPT Code: 67123 FULL RESULT: EXAM: CHEST RADIOGRAPHY EXAM DATE: 09/24/2018 02:32 PM. CLINICAL HISTORY: Chest pain. COMPARISON: CHEST 1 VIEW 11/14/2017 2:51 AM. TECHNIQUE: 1 view. FINDINGS: Lungs/Pleura: No focal opacities evident. No pleural effusion. No pneumothorax. Mediastinum: Within exam limitations, the cardiomediastinal contour is normal. Other: Right subclavian dual-lead pacemaker is in place. IMPRESSION: No acute intrathoracic plain film abnormality. RADIA
[2018-09-24] MEDS ORDERED: ASPIRIN 325 MG TABLET PO STA (16:02)
[2018-09-24] MEDS ORDERED: MORPHINE 2 MG/ML CARPUJECT IVP PRN (16:23)
[2018-09-24] MEDS ORDERED: NITROGLYCERIN SL 0.4 MG TABLET SL PRN (16:23)
[2018-09-24] MEDS ORDERED: ZOLPIDEM 5 MG TABLET PO PRN (16:26)
[2018-09-24] MEDS ORDERED: SODIUM CHLORIDE FLUSH 0.9% 10 ML SYRINGE IVP PRN (16:26)
[2018-09-24] MEDS ORDERED: ONDANSETRON 4 MG/2 ML VIAL IVP PRN (16:26)
[2018-09-24] MEDS ORDERED: ACETAMINOPHEN 325 MG TABLET PO PRN (16:26)
[2018-09-24] MEDS ORDERED: LORazepam 0.5 MG TABLET PO PRN (16:28)
[2018-09-24] MEDS ORDERED: METOPROLOL 5 MG/5 ML VIAL IVP PRN (16:32)
--- NOTE | 2018-09-24 16:41 | HISTORY & PHYSICAL EXAMINATION ---
Chief Complaint - Chief Complaint Chief Complaint: chest pain History of Present Illness - History of Present Illness HPI Comment/Other: Ms. Montenegro is a 88-yrs-old female with a PMH significant for Hypertension, High cholesterol, Coronary artery disease, Deep vein thrombosis, Angina, Arrhythmia, HyPOthyroidism, GERD, GI bleed, Diverticulitis, anxiety and depression, who present ER for complain chest pain. Pt report she did not have chest pain now. She report she had chest pain on two days ago. She has noted her BP to be elevated above her usual 140-150 systolic over the past several days and her Heart rate higher rise to 80-100, she state she has usually 60. She report her chest pain has improved with NTG. She also feels anxious today. After she was taken dose of Ativan, she is feeling much better and no more chest pain. She report her chest pain located at her middle of her chest without radiation to other location. She denies diaphoresis, nausea, vomiting, shortness of breath, headache, palpitation associated with her chest pain. Lab test reveals pt had twice slight elevated troponin 0.24, 0.27. ER provider called pt's color card maker Dr. Umana, cardiology at [facility]. Per ER provider report Dr. Umana did not feel that pt had likely an acute occlusive process but was wondering more about a demand ischemia because of a high blood pressure. felt pt did deserve in the hospital for ruling out [place], and perhaps evaluation with stress or echo. However did not feel pt need to be transferred. pt is admitted for R/O ACS. History - Past Medical History Cardiovascular: reports: Hypertension, High cholesterol, Coronary artery disease, Deep vein thrombosis, Angina, Arrhythmia Respiratory: reports: Shortness of breath Endocrine/Autoimmune: reports: HyPOthyroidism GI: reports: GERD, GI bleed, Diverticulitis GROCERY SACKER: reports: None : reports: None HEENT: reports: None Psych: reports: Depression, Anxiety Musculoskeletal: reports: Osteoarthritis Derm: reports: None MRSA Hx?: Yes - Past Surgical History General: reports: Colonoscopy, Other Ortho: reports: Knee replacement /GROCERY SACKER: reports: Hysterectomy Cardiovascular: reports: Pacemaker, Vascular surgery - Family & Social History Family History: Mother: , Diabetes, Type 1, Hypertension, Father: , Hyperlipidemia, Hypertension, Other family: Hyperlipidemia, Hypertens ion Living arrangement: At home Living Situation: With family (son) Social History Notes: The patient is a whose last year. Her son now lives with her. - Substance History Use: Uses substance without health or social issues: Alcohol - POLST Patient has POLST: Yes POLST Status: DNR Meds/Allgy - Home Medications Home Medications: Ambulatory Orders Medication Instructions Recorded Confirmed Levothyroxine Sodium [Levoxyl] 75 mcg PO QPM 01/16/13 09/24/18 PARoxetine [Paxil] 20 mg PO DAILY 01/16/13 09/24/18 Telmisartan [Micardis] 40 mg PO BID 01/16/13 09/24/18 LORazepam [Ativan] 0.5 mg PO BID PRN 09/01/16 09/24/18 Metoprolol Tartrate 50 mg PO BID 11/13/17 09/24/18 Pantoprazole Sodium [Protonix] 40 mg PO DAILY 07/21/18 09/24/18 cloNIDine 0.2 MG PATCH 1 patch TOP Q7D 09/24/18 09/24/18 [[id number]] - Allergies Allergies/Adverse Reactions: Allergies Allergy/AdvReac Type Severity Reaction Status Date / Time fluconazole [From Diflucan] Allergy Unknown Verified 09/24/18 11:56 naproxen [From Aleve] Allergy Unknown Verified 09/24/18 11:56 nitrofurantoin Allergy Unknown Verified 09/24/18 11:56 [From Macrobid] lisinopril AdvReac Respiratory Verified 09/24/18 11:56 Review of Systems - Constitutional Constitutional: denies: Fatigue, Fever, Chills, Malaise, Weakness, Poor appetite, Diaphoresis, Night sweats - Eyes Eyes: denies: Pain, Irritation, Amaurosis, Blurred vision, Spots in vision, Field loss, Vision loss, Dipolpia - Ears, Nose & Throat Ears, Nose & Throat: denies: Ear pain, Hearing loss, Hearing aids, Vertigo, Nasal pain, Nasal discharge, Nosebleeds, Nasal obstruction, Nasal congestion, Postnasal drainage, Dentures, Sore throat, Hoarseness, Mouth lesions, Bleeding gums - Cardiovascular Cariovascular: reports: Chest pain. denies: Irregular heart rate, Palpitations, Edema, Lightheadedness, Syncope, Exertional dyspnea, Decr. exercise tolerance - Respiratory Respiratory: denies: Cough, Sputum production, Wheezing, Snoring, Hemoptysis, Orthopnea, SOB at rest, SOB with exertion - Gastrointestinal Gastrointestinal: denies: Abdominal pain, Abdominal distention, Constipation, Diarrhea, Change in bowel habits, Rectal bleeding, Black stools, Bloody stools, Nausea, Vomiting, Bile emesis, Enrrique blood emesis, Coffee grounds emesis, Reflux/heartburn - Genitourinary Genitourinary: denies: Dysuria, Frequency, Urgency, Hematuria, Incontinence, Flank pain, Nocturia, Urethral discharge - Musculoskeletal Musculoskeletal: denies: Muscle pain, Back pain, Muscle aches, Stiffness, Limited range of motion, Muscle weakness, Gout, Joint pain - Integumentary Integumentary: denies: Rash, Pruritis, Lesions, Dryness, Lumps, Acne, Pigment changes, Nail changes - Neurological Neurological: denies: General weakness, Focal weakness, Headache, Dizziness, Numbness, Memory problems, Pre-existing deficit, Abnormal gait, Seizures, Incoordination, Slurred speech - Psychiatric Psychiatric: reports: Depression, Anxiety. denies: Suicidal, Delusions, Hallucinations, Homicidal - Endocrine Endocrine: denies: Polyuria, Polydypsia, Polyphagia, Intolerance to cold - Hematologic/Lymphatic Hematologic/Lymphatic: denies: Anemia, Bruising, Petechiae, Blood clots, Lymphadenopathy, Bleeding tendencies Prior Level of Functionality: pt is independently living with her son Exam - Vital Signs Reviewed Vital Signs: Yes Vital Signs: Vital Signs x48h Temp Pulse Resp BP Pulse Ox 09/24/18 16:23 69 20 166/86 H 98 09/24/18 16:01 36.5 C 112 H 16 168/106 H 97 09/24/18 14:32 106 H 20 156/97 H 96 09/24/18 12:50 60 18 155/76 H 97 09/24/18 12:45 104 H 18 126/76 96 09/24/18 12:23 106 H 20 144/72 H 95 09/24/18 11:53 36.6 C 106 H 16 174/97 H 99 - Physical Exam General Appearance: positive: No acute distress, Alert. negative: Lethargic Eyes Bilateral: positive: Normal inspection, PERRL, No lid inflammation, Conjunctivae nml ENT: positive: ENT inspection nml, Pharynx nml, No signs of dehydration. negative: Purulent nasal drainage, Pharyngeal erythema, Oral lesions Neck: positive: Nml inspection, Thyroid nml, No JVD, Trachea midline. negative: Thyromegaly, Lymphadenopathy (R), Lymphadenopathy (L), Stiff neck, Swelling/bruising, Tracheal deviation Respiratory: positive: Chest non-tender, No respiratory distress, Breath sounds nml. negative: Wheezes, Rales, Rhonchi Cardiovascular: positive: Regular rate & rhythm, No murmur, No gallop, T achycardia. negative: Irregularly irregular, Extrasystoles, Bradycardia, JVD present, Systolic murmur, Diastolic murmur Peripheral Pulses: positive: 2+ Abdomen: positive: Non-tender, No organomegaly, Nml bowel sounds, No distention. negative: Tenderness, Guarding, Rebound Back: positive: Nml inspection. negative: CVA tenderness (R), CVA tenderness (L) Skin: positive: Color nml, No rash, Warm, Dry. negative: Cyanosis, Diaphoresis, Pallor Extremities: positive: Non-tender, Nml appearance. negative: Calf tenderness, Joint swelling, Georgette's sign/cords Neurologic/Psychiatric: positive: Oriented x3, Sensation nml, Mood/affect nml. negative: Weakness, Sensory loss, Facial droop, Slurred/abnml speech, Depressed mood/affect Sepsis Event Note (H) - Evaluation Current Stage of Sepsis: Ruled out Conclusion/Plan - Problem List (1) Chest pain, rule out acute myocardial infarction Conclusion/Plan: pt had chest pain two days and released by Nitro, and pt elevated troponin 0.24, and 0.27. EKG has minor changing comparing the previous one. DR West did not think pt had acute [place] yet, but recommend to have M R/O [place] continue serial Troponin test because elevated troponin 0.24, and 0.27, pt released chest pain from usage of Nitro. start on Aspirin once, then order therapeutic Lovenox 1mg/kg Bid nitro and Morphine PRN tele and vital monitor (2) Hypertension Conclusion/Plan: pt present elevated BP, resume home meds. IV of Metoprolol, Hydralazine PRN Qualifiers: Hypertension type: essential hypertension Qualified Code(s): I10 - Essential (primary) hypertension (3) Anxiety and depression Conclusion/Plan: pt report she had hx of anxiety and depression, which can contribute cardiac distress Ativan PRN (4) Sinus tachycardia Conclusion/Plan: pt present Sinus tachycardia. IV of Metoprolol PRN tele and vital monitor (5) Hypothyroidism Conclusion/Plan: resume home synth recheck TSH (6) GERD (gastroesophageal reflux disease) Conclusion/Plan: stable, resume home medsd - Lab Results Fish Bones: 09/24/18 12:30 09/24/18 12:30 Core Measures - Anticipated LOS I expect patient to be DC'd or transferred within 96 hours.: Yes - DVT/VTE - Prophylaxis VTE/DVT Device ordered at admit?: Yes VTE/DVT Prophylaxis med ordered at admit?: Yes
[2018-09-24] MEDS: hydrALAZINE INJ 20 MG/ML VIAL IVP PRN (17:28)
[2018-09-24] MEDS: SODIUM CHLORIDE FLUSH 0.9% 10 ML SYRINGE IVP SCH (17:29)
[2018-09-24] MEDS ORDERED: cloNIDine 0.2 MG PATCH TOP SCH (19:00)
[2018-09-24] MEDS: FAMOTIDINE 20 MG TABLET PO SCH (20:11)
[2018-09-24] MEDS: METOPROLOL TARTRATE 25 MG TABLET PO SCH (20:11)
[2018-09-24] MEDS: LOSARTAN 50 MG TABLET PO SCH (20:12)
[2018-09-24] MEDS: ENOXAPARIN 60 MG/0.6 ML SYRINGE SUBQ SCH (20:12)
[2018-09-24] MEDS ORDERED: LEVOTHYROXINE 75 MCG TABLET PO SCH (21:00)
[2018-09-25] MEDS: SODIUM CHLORIDE FLUSH 0.9% 10 ML SYRINGE IVP SCH ×2 (01:38→08:20)
[2018-09-25 02:15] LABS: BASOPHILS # (AUTO) 0.2 10^3/uL (0.0-0.1); BASOPHILS % (AUTO) 2.8 %; EOSINOPHILS # (AUTO) 0.1 10^3/uL (0.0-0.7); EOSINOPHILS % (AUTO) 2.6 %; HGB - HEMOGLOBIN 11.7 g/dL (12.0-16.0); LYMPHOCYTES # (AUTO) 1.4 10^3/uL (1.5-3.5); LYMPHOCYTES % (AUTO) 24.4 %; MEAN CORPUSCULAR HEMOGLOBIN 30.9 pg (27.0-31.0); MEAN CORPUSCULAR VOLUME 90.9 fL (81.0-99.0); MEAN PLATELET VOLUME 8.6 fL (7.9-10.8); MONOCYTES # (AUTO) 0.5 10^3/uL (0.0-1.0); MONOCYTES % (AUTO) 8.8 %; NEUTROPHILS # (AUTO) 3.5 10^3/uL (1.5-6.6); NEUTROPHILS % (AUTO) 61.4 %; PLT - PLATELET COUNT 149 10^3/uL (130-450); RED BLOOD COUNT 3.79 10^6/uL (4.20-5.40); RED CELL DISTRIBUTION WIDTH 14.4 % (12.0-15.0); WHITE BLOOD COUNT 5.6 x10^3/uL (4.8-10.8)
[2018-09-25 02:28] LABS: ALBUMIN 3.4 g/dL (3.2-5.5); ALBUMIN/GLOBULIN RATIO 1.4 (1.0-2.2); BILIRUBIN,TOTAL 0.7 mg/dL (0.2-1.0); CALCIUM 8.8 mg/dL (8.5-10.3); CREATININE 0.7 mg/dL (0.4-1.0); MAGNESIUM 2.1 mg/dL (1.7-2.8); TOTAL PROTEIN 5.8 g/dL (6.7-8.2)
[2018-09-25] MEDS: METOPROLOL TARTRATE 25 MG TABLET PO SCH (08:17)
[2018-09-25] MEDS: LOSARTAN 50 MG TABLET PO SCH (08:19)
[2018-09-25] MEDS: ENOXAPARIN 60 MG/0.6 ML SYRINGE SUBQ SCH (08:19)
[2018-09-25] MEDS: FAMOTIDINE 20 MG TABLET PO SCH (08:19)
[2018-09-25] MEDS: hydrALAZINE INJ 20 MG/ML VIAL IVP PRN (08:20)
[2018-09-25] MEDS ORDERED: PARoxetine 10 MG TABLET PO SCH (09:00)
[2018-09-25] MEDS ORDERED: POLYETHYLENE GLYCOL 3350 17 GM PACKET PO SCH (09:00)
[2018-09-25] MEDS ORDERED: LORazepam 0.5 MG TABLET PO PRN (09:08)
[2018-09-25 10:29] LABS: CHOL/HDL RATIO 4.1 (<4.4); CHOLESTEROL 255 mg/dL; HDL CHOLESTEROL 62 mg/dL; LDL CHOLESTEROL,CALCULATED 172 mg/dL; LDL/HDL RATIO 2.8 (<4.4); VLDL CHOLESTEROL 21 mg/dL
[2018-09-25] MEDS ORDERED: METOPROLOL SUCCINATE 50 MG TABLET PO SCH (13:00)
--- NOTE | 2018-09-25 14:58 | Discharge Plan ---
Discharge Plan Disposition: Home, Self Care Condition: Poor Prescriptions: Nitroglycerin [Nitrostat] 0.4 mg SL Q5MIN PRN #30 tablet PRN Reason: Chest Pain Aspirin 325 mg PO DAILY #10 tablet Atorvastatin [Lipitor] 20 mg PO QPM #20 tablet Metoprolol Tartrate 75 mg PO BID #40 tablet Diet: Regular Activity Restrictions: Activity as Tolerated Shower Restrictions: No (fall precaution) Instruction Topics: Aspirin ASA chewable tablets, Nitroglycerin Fast Acting, Atorvastatin tablets, Metoprolol tablets Additional Instructions or Follow Up instructions: You may followup your PCP in one week, may followup your environmental protection officer in one week to have cardiac stress test. Should your symptoms return or worsen, you may present ER or call 911 or your PCP for help. No Smoking: If you smoke, Please STOP! Call for help. Follow-up with: Divya Raphael DO [Primary Care Provider] -
--- NOTE | 2018-09-25 15:24 | DISCHARGE SUMMARY ---
Discharge Summary Discharge Date: 09/25/18 Discharging Provider: PAGAN Primary Care Provider: Divya Garay Condition at Discharge: Poor Discharge Disposition: Home, Self Care Discharge Facility Name: home - DIAGNOSES Admission Diagnoses: (1) Chest pain, rule out acute myocardial infarction (2) Hypertension (3) Anxiety and depression (4) Sinus tachycardia (5) Hypothyroidism (6) GERD (gastroesophageal reflux disease) Discharge Diagnoses with Status of Each Condition: 1) Chest pain, rule out acute myocardial infarction pt denies any more chest pain since she was admitted in the hospital. ECHO reveals LVF hyperdnamic with EF>75%, without regional wall motion abnormalities. EKG reveals ST without significant acute changing comparing previous one. However it was concerned that pt had elevated troponin, and steadily decrease its value after pt was given Aspirin and subsequently given Lovenox. Her troponin value was 0.24, 0.27, 0.26, 0.23, 0.22, 0.19. Pt's artificial cherry maker, Dr. Umana, was consulted per ER provider, "He did not feel that likely that she had an acute occlusive process but was wondering more about a demand ischemia with a high blood pressure." pt was advised to followup her artificial cherry maker to have stress test (we did not have stress test at the weekend), pt is prescribed Nitro, Aspirin for 10 days, and followup her PCP and artificial cherry maker for further management. (2) Hypertension pt's BP is controlled around 130/70. pt's son report pt was recently prescribed 75mg bid Metoprolol. continue home regimen and followup PCP continue management. (3) Anxiety and depression pt report she has been lots anxiety since her . discuss with pt how anxiety and distress related with cardiac disease, and how to reduce anxiety and resume pt's home anti-anxiety meds, further followup PCP for management. (4) Sinus tachycardia resolved. Pt's tele reveals her HR is around 70. resume pt's home meds Metoprolol 75mg bid (5) Hypothyroidism TSH is normal, continue home meds (6) GERD (gastroesophageal reflux disease) stable, continue home Protonix. (7) HLD Pt's lipid panel test reveals elevated cholesterol and LDL, pt is prescribed Lipitor 20mg daily. discussed with pt about all medication effective and side effective, special when pt is prescribed aspirin, monitor if any GI bleed although pt had home meds Protonix. Pt's son and daughter were at pt's bed side, answer all their questions and concerns. - HPI History of Present Illness: Ms. Montenegro is a 88-yrs-old female with a PMH significant for Hypertension, High cholesterol, Coronary artery disease, Deep vein thrombosis, Angina, Arrhythmia, HyPOthyroidism, GERD, GI bleed, Diverticulitis, anxiety and depression, who present ER for complain chest pain. Pt report she did not have chest pain now. She report she had chest pain on two days ago. She has noted her BP to be elevated above her usual 140-150 systolic over the past several days and her Heart rate higher rise to 80-100, she state she has usually 60. She report her chest pain has improved with NTG. She also feels anxious today. After she was taken dose of Ativan, she is feeling much better and no more chest pain. She report her chest pain located at her middle of her chest without radiation to other location. She denies diaphoresis, nausea, vomiting, shortness of breath, headache, palpitation associated with her chest pain. Lab test reveals pt had twice slight elevated troponin 0.24, 0.27. ER provider called pt's artificial cherry maker Dr. Umana, cardiology at [facility]. Per ER provider report Dr. Umana did not feel that pt had likely an acute occlusive process but was wondering more about a demand ischemia because of a high blood pressure. felt pt did deserve in the hospital for ruling out [place], and perhaps evaluation with stress or echo. However did not feel pt need to be transferred. pt is admitted for R/O ACS. - HOSPITAL COURSE Hospital Course: pt was admitted for chest pain. After admitted, pt denies any more chest pain. ECHO reveals LVF hyperdnamic with EF>75%, without regional wall motion abnormalities. EKG reveals ST without significant acute changing comparing p revious one. However it was concerned that pt had elevated troponin, and steadily decrease its value after pt was given Aspirin and subsequently given Lovenox. Pt's artificial cherry maker, Dr. Umana, was consulted per ER provider, "He did not feel that likely that she had an acute occlusive process but was wondering more about a demand ischemia with a high blood pressure." pt was advised to followup her artificial cherry maker to have stress test. Pt's BP and HR was controlled after treated in the hospital. - ALLERGIES Allergies/Adverse Reactions: Allergies Allergy/AdvReac Type Severity Reaction Status Date / Time fluconazole [From Diflucan] Allergy Unknown Verified 09/24/18 11:56 naproxen [From Aleve] Allergy Unknown Verified 09/24/18 11:56 nitrofurantoin Allergy Unknown Verified 09/24/18 11:56 [From Macrobid] lisinopril AdvReac Respiratory Verified 09/24/18 11:56 - MEDICATIONS Home Medications: Ambulatory Orders Medication Instructions Recorded Confirmed Levothyroxine Sodium [Levoxyl] 75 mcg PO QPM 01/16/13 09/24/18 PARoxetine [Paxil] 20 mg PO DAILY 01/16/13 09/24/18 Telmisartan [Micardis] 40 mg PO BID 01/16/13 09/24/18 LORazepam [Ativan] 0.5 mg PO BID PRN 09/01/16 09/24/18 Pantoprazole Sodium [Protonix] 40 mg PO DAILY 07/21/18 09/24/18 cloNIDine 0.2 MG PATCH 1 patch TOP Q7D 09/24/18 09/24/18 [[id number]] Aspirin 325 mg PO DAILY #10 tablet 09/25/18 Atorvastatin [Lipitor] 20 mg PO QPM #20 tablet 09/25/18 Metoprolol Tartrate 75 mg PO BID #40 tablet 09/25/18 Nitroglycerin [Nitrostat] 0.4 mg SL Q5MIN PRN #30 tablet 09/25/18 - PHYSICAL EXAM AT DISCHARGE General Appearance: positive: No acute distress, Alert. negative: Lethargic Eyes Bilateral: positive: Normal inspection, PERRL, No lid inflammation, Conjunctivae nml ENT: positive: ENT inspection nml, Pharynx nml, No signs of dehydration. negative: Purulent nasal drainage, Pharyngeal erythema, Oral lesions Neck: positive: Nml inspection, Thyroid nml, No JVD, Trachea midline. negative: Thyromegaly, Lymphadenopathy (R), Lymphadenopathy (L), Stiff neck, Swelling/bruising, Tracheal deviation Respiratory: positive: Chest non-tender, No respiratory distress, Breath sounds nml. negative: Wheezes, Rales, Rhonchi Cardiovascular: positive: Regular rate & rhythm, No murmur, No gallop. negative: Irregularly irregular, Extrasystoles, Tachycardia, Bradycardia, JVD present, Systolic murmur, Diastolic murmur Peripheral Pulses: positive: 2+ Abdomen: positive: Non-tender, No organomegaly, Nml bowel sounds, No distention. negative: Tenderness, Guarding, Rebound Back: positive: Nml inspection. negative: CVA tenderness (R), CVA tenderness (L) Skin: positive: Color nml, No rash, Warm, Dry. negative: Cyanosis, Diaphoresis, Pallor Extremities: positive: Non-tender, Full ROM, Nml appearance. negative: Calf tenderness, Joint swelling, Georgette's sign/cords Neurologic/Psychiatric: positive: Oriented x3, Motor nml, Sensation nml, Mood/affect nml. negative: Weakness, Sensory loss, Facial droop, Slurred/abnml speech, Depressed mood/affect - LABS Result Diagrams: 09/25/18 02:00 09/25/18 02:00 - SEPSIS Current Stage of Sepsis: Ruled out - FOLLOW UP Follow Up: You may followup your PCP in one week, may followup your artificial cherry maker in one week to have cardiac stress test. Should your symptoms return or worsen, you may present ER or call 911 or your PCP for help. - TIME SPENT Time Spent in Discharge (Minutes): 60
[2018-09-25 16:00] VITALS: BP 135/64
[2018-09-25] MEDS ORDERED: ATORVASTATIN 10 MG TABLET PO SCH (21:00)
== END 2018-09-25 16:15 | disposition home or self-care (01) ==
LOC: ED 11:46 → MS2 16:26
PROVIDERS: ADMIT Nurse Practitioner Gerontology; ATTEND Nurse Practitioner Gerontology
DX: R07.9 Chest pain, unspecified (principal); I10 Essential (primary) hypertension; F41.9 Anxiety disorder, unspecified; F32.9 Major depressive disorder, single episode, unspecified; R00.0 Tachycardia, unspecified; E03.9 Hypothyroidism, unspecified; K21.9 Gastro-esophageal reflux disease without esophagitis; E78.5 Hyperlipidemia, unspecified; I25.10 Atherosclerotic heart disease of native coronary artery without angina pectoris; Z66 Do not resuscitate
CPT/HCPCS: 36415; 71045; 80053; 80061; 81001; 83690; 83735; 83880; 84443; 84484; 85025; 87086; 93005; 93306; 96361; 96372; 96374; 96375; 96376; 99284; A9270; G0378; J1650; 81003; 83721

== ENCOUNTER 2018-12-30 08:00 | Outpatient (CLI) | payer MEDICARE, OTHER | END 2018-12-30 23:59 | disposition home or self-care (01) | LOC: LAB.WCP 08:00 | PROVIDERS: ATTEND Family Medicine | DX: R35.0 Frequency of micturition (principal) | CPT/HCPCS: 87086 ==

== ENCOUNTER 2019-02-03 08:00 | Outpatient (CLI) | payer MEDICARE, OTHER ==
[2019-02-03 18:46] LABS: BASOPHILS # (AUTO) 0.1 10^3/uL (0.0-0.1); BASOPHILS % (AUTO) 0.9 %; CALCIUM 9.4 mg/dL (8.5-10.3); CREATININE 0.9 mg/dL (0.4-1.0); EOSINOPHILS # (AUTO) 0.1 10^3/uL (0.0-0.7); EOSINOPHILS % (AUTO) 2.2 %; HGB - HEMOGLOBIN 12.2 g/dL (12.0-16.0); LYMPHOCYTES # (AUTO) 1.2 10^3/uL (1.5-3.5); LYMPHOCYTES % (AUTO) 17.7 %; MEAN CORPUSCULAR HEMOGLOBIN 30.6 pg (27.0-31.0); MEAN CORPUSCULAR HGB CONC 32.9 g/dL (32.0-36.0); MEAN CORPUSCULAR VOLUME 92.9 fL (81.0-99.0); MEAN PLATELET VOLUME 9.6 fL (7.9-10.8); MONOCYTES # (AUTO) 0.5 10^3/uL (0.0-1.0); MONOCYTES % (AUTO) 7.3 %; NEUTROPHILS # (AUTO) 4.8 10^3/uL (1.5-6.6); NEUTROPHILS % (AUTO) 71.9 %; PLT - PLATELET COUNT 150 10^3/uL (130-450); RED BLOOD COUNT 3.98 10^6/uL (4.20-5.40); RED CELL DISTRIBUTION WIDTH 14.3 % (12.0-15.0); WHITE BLOOD COUNT 6.6 x10^3/uL (4.8-10.8)
== END 2019-02-03 08:01 | disposition home or self-care (01) ==
LOC: LAB.WCP 08:00
PROVIDERS: ATTEND Physician Assistant Medical
DX: I10 Essential (primary) hypertension (principal)
CPT/HCPCS: 36415; 80048; 84443; 85025

== ENCOUNTER 2019-04-19 08:00 | Outpatient (CLI) | payer MEDICARE, OTHER ==
[2019-04-19 18:42] LABS: BASOPHILS % (AUTO) 0.4 %; EOSINOPHILS % (AUTO) 0.9 %; HGB - HEMOGLOBIN 12.4 g/dL (12.0-16.0); LYMPHOCYTES # (AUTO) 0.8 10^3/uL (1.5-3.5); MEAN CORPUSCULAR HEMOGLOBIN 30.6 pg (27.0-31.0); MEAN CORPUSCULAR VOLUME 95.6 fL (81.0-99.0); MEAN PLATELET VOLUME 11.8 fL (7.9-10.8); MONOCYTES # (AUTO) 0.4 10^3/uL (0.0-1.0); MONOCYTES % (AUTO) 8.2 %; NEUTROPHILS # (AUTO) 3.4 10^3/uL (1.5-6.6); NEUTROPHILS % (AUTO) 73.3 %; PLT - PLATELET COUNT 133 10^3/uL (130-450); RED BLOOD COUNT 4.05 10^6/uL (4.20-5.40); RED CELL DISTRIBUTION WIDTH 14.5 % (12.0-15.0); WHITE BLOOD COUNT 4.6 x10^3/uL (4.8-10.8)
[2019-04-19 18:50] LABS: ALBUMIN/GLOBULIN RATIO 1.4 (1.0-2.2); BILIRUBIN,TOTAL 0.4 mg/dL (0.2-1.0); CALCIUM 9.3 mg/dL (8.5-10.3); CREATININE 0.9 mg/dL (0.4-1.0); TOTAL PROTEIN 6.9 g/dL (6.7-8.2)
[2019-04-19 18:55] LABS: PLATELET ESTIMATE, MANUAL NORMAL (130-450,000) (NORMAL); PLATELET MORPHOLOGY NORMAL APPEARANCE (NORMAL); RBC MORPHOLOGY (MULTIPLE) NORMAL APPEARANCE (NORMAL)
== END 2019-04-19 23:59 | disposition home or self-care (01) ==
LOC: LAB.WCP 08:00
PROVIDERS: ATTEND Family Medicine
DX: I10 Essential (primary) hypertension (principal)
CPT/HCPCS: 36415; 80053; 85025

== ENCOUNTER 2019-04-20 08:00 | Outpatient (CLI) | payer MEDICARE, OTHER ==
[2019-04-20 18:39] LABS: BILIRUBIN,URINE NEGATIVE (NEGATIVE); GLUCOSE, URINE (UA) NEGATIVE (NEGATIVE); KETONES,URINE (UA) NEGATIVE (NEGATIVE); LEUKOCYTE ESTERASE, URINE SMALL (NEGATIVE); NITRITE,URINE NEGATIVE (NEGATIVE); OCCULT BLOOD,URINE SMALL (NEGATIVE); PH,URINE 6.5 PH (5.0-7.5); PROTEIN,URINE NEGATIVE (NEGATIVE); UROBILINOGEN,URINE 0.2 (NORMAL) E.U./dL (NORMAL)
[2019-04-20 18:41] LABS: CLARITY,URINE CLEAR (CLEAR)
[2019-04-20 18:47] LABS: BACTERIA,URINE Few /HPF (None Seen); SQUAMOUS EPITHELIAL CELL,UR FEW Squamous (<= Few)
== END 2019-04-20 23:59 | disposition home or self-care (01) ==
LOC: LAB.WCP 08:00
PROVIDERS: ATTEND Family Medicine
DX: R35.0 Frequency of micturition (principal)
CPT/HCPCS: 81001; 81003; 87077; 87086

== ENCOUNTER 2019-06-30 10:58 | Outpatient (CLI) | payer MEDICARE, OTHER ==
--- NOTE | 2019-06-30 15:41 | XRAY Report ---
Reason: LEFT KNEE PAIN Procedure Date: 06/30/2019 Accession Number: [id number] / [id number] Procedure: WCP - Knee 2 View LT CPT Code: Final Report FULL RESULT: EXAM: LEFT KNEE RADIOGRAPHY EXAM DATE: 06/30/2019 11:24 AM. CLINICAL HISTORY: LEFT KNEE PAIN. COMPARISON: None. TECHNIQUE: 3 views. FINDINGS: Bones: No fracture. No bone lesion. Joints: Severe chondrocalcinosis. Tricompartmental osteoarthritis with joint space loss and osteophytosis. Soft Tissues: Soft tissue calcifications seen posterior to the joint and over the suprapatellar pouch IMPRESSION: 1. Severe tricompartmental osteoarthritis. Kellgren Suraj Grade 4. 2. Severe chondrocalcinosis. 3. Nonspecific soft tissue calcifications along the posterior joint and suprapatellar pouch. Could be dystrophic in etiology. May be better evaluated with CT or MRI Kellgren and Suraj classification of osteoarthritis: Grade 0: no radiographic features of osteoarthritis are present Grade 1: doubtful joint space narrowing (JSN) and possible osteophytic lipping Grade 2: definite osteophytes and possible JSN on anteroposterior weight-bearing radiograph Grade 3: multiple osteophytes, definite JSN, sclerosis, possible bony deformity Grade 4: large osteophytes, marked JSN, severe sclerosis and definite bony deformity RADIA
== END 2019-06-30 23:59 | disposition home or self-care (01) ==
LOC: DI.WCP 10:58
PROVIDERS: ATTEND Family Medicine
DX: M17.12 Unilateral primary osteoarthritis, left knee (principal); M11.262 Other chondrocalcinosis, left knee; M79.89 Other specified soft tissue disorders

== ENCOUNTER 2019-08-22 08:00 | Outpatient (CLI) | payer MEDICARE, OTHER | END 2019-08-22 23:59 | disposition home or self-care (01) | LOC: LAB.R 08:00 | PROVIDERS: ATTEND Family Medicine | DX: R35.0 Frequency of micturition (principal) | CPT/HCPCS: 87086 ==

== ENCOUNTER 2019-11-10 08:48 | Outpatient (CLI) | payer MEDICARE, OTHER ==
[2019-11-10 11:59] LABS: BASOPHILS % (AUTO) 0.6 %; EOSINOPHILS # (AUTO) 0.1 10^3/uL (0.0-0.7); EOSINOPHILS % (AUTO) 1.8 %; HGB - HEMOGLOBIN 12.1 g/dL (12.0-16.0); MEAN CORPUSCULAR HEMOGLOBIN 31.4 pg (27.0-31.0); MEAN CORPUSCULAR HGB CONC 32.4 g/dL (32.0-36.0); MEAN CORPUSCULAR VOLUME 96.9 fL (81.0-99.0); MEAN PLATELET VOLUME 11.7 fL (7.9-10.8); MONOCYTES # (AUTO) 0.5 10^3/uL (0.0-1.0); MONOCYTES % (AUTO) 8.3 %; NEUTROPHILS # (AUTO) 3.8 10^3/uL (1.5-6.6); NEUTROPHILS % (AUTO) 69.9 %; PLT - PLATELET COUNT 154 10^3/uL (130-450); RED BLOOD COUNT 3.85 10^6/uL (4.20-5.40); RED CELL DISTRIBUTION WIDTH 14.2 % (12.0-15.0); WHITE BLOOD COUNT 5.4 x10^3/uL (4.8-10.8)
[2019-11-10 12:32] LABS: ALBUMIN 4.1 g/dL (3.2-5.5); ALBUMIN/GLOBULIN RATIO 1.4 (1.0-2.2); ALKALINE PHOSPHATASE 53 IU/L (42-121); ALT ALANINE AMINOTRANSFERASE 11 IU/L (10-60); AST ASPARTATE AMINOTRANSFERASE 17 IU/L (10-42); BILIRUBIN,TOTAL 0.6 mg/dL (0.2-1.0); BUN - BLOOD UREA NITROGEN 19 mg/dL (6-20); CALCIUM 9.1 mg/dL (8.5-10.3); CARBON DIOXIDE - CO2 29 mmol/L (21-32); CHLORIDE 101 mmol/L (101-111); CHOL/HDL RATIO 2.8 (<4.4); CHOLESTEROL 175 mg/dL; CREATININE 0.8 mg/dL (0.4-1.0); GFR - MDRD 68 (>89); GLUCOSE 72 mg/dL (70-100); HDL CHOLESTEROL 62 mg/dL; LDL CHOLESTEROL,CALCULATED 94 mg/dL; LDL/HDL RATIO 1.5 (<4.4); SODIUM 136 mmol/L (135-145); VLDL CHOLESTEROL 19 mg/dL
== END 2019-11-10 23:59 | disposition home or self-care (01) ==
LOC: LAB.WCP 08:48
PROVIDERS: ATTEND Family Medicine
DX: I10 Essential (primary) hypertension (principal); E78.5 Hyperlipidemia, unspecified; E03.9 Hypothyroidism, unspecified
CPT/HCPCS: 36415; 80053; 80061; 83721; 84443; 85025

== ENCOUNTER 2020-01-14 15:32 | Emergency (ER) | payer MEDICARE, OTHER ==
--- NOTE | 2020-01-14 16:48 | ED Physician Documentation ---
History of Present Illness - Stated complaint Stated Complaint: RT LEG PX - Chief complaint Chief Complaint: Ext Problem - History obtained from History obtained from: Patient - History of Present Illness Timing: Yesterday Pain level max: 7 Pain level now: 2 - Additonal information Additional information: 89-year-old female presents to the emergency department stating that she occasionally has pain in the left foot. Started after gardening yesterday. This is intermittent. Better with Tylenol and rest. Worse with walking. No leg swelling. No numbness or tingling. 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 : None HEENT: None Psych: Depression, Anxiety Musculoskeletal: Osteoarthritis Derm: None - Past Surgical History Past Surgical History: Yes General: Colonoscopy, Other Ortho: Knee replacement /ELECTRICAL CHECKOUT MECHANIC: Hysterectomy Cardiovascular: Pacemaker, Vascular surgery - Present Medications Home Medications: Ambulatory Orders Medication Instructions Recorded Confirmed Levothyroxine Sodium [Levoxyl] 75 mcg PO QPM 01/16/13 09/24/18 PARoxetine [Paxil] 20 mg PO DAILY 01/16/13 09/24/18 Telmisartan [Micardis] 40 mg PO BID 01/16/13 09/24/18 LORazepam [Ativan] 0.5 mg PO BID PRN 09/01/16 09/24/18 Pantoprazole Sodium [Protonix] 40 mg PO DAILY 07/21/18 09/24/18 cloNIDine 0.2 MG PATCH 1 patch TOP Q7D 09/24/18 09/24/18 [[id number]] Aspirin 325 mg PO DAILY #10 tablet 09/25/18 Atorvastatin [Lipitor] 20 mg PO QPM #20 tablet 09/25/18 Metoprolol Tartrate 75 mg PO BID #40 tablet 09/25/18 Nitroglycerin [Nitrostat] 0.4 mg SL Q5MIN PRN #30 tablet 09/25/18 - Allergies Allergies/Adverse Reactions: Allergies Allergy/AdvReac Type Severity Reaction Status Date / Time fluconazole [From Diflucan] Allergy Unknown Verified 01/14/20 16:26 naproxen [From Aleve] Allergy Unknown Verified 01/14/20 16:26 nitrofurantoin Allergy Unknown Verified 01/14/20 16:26 [From Macrobid] lisinopril AdvReac Respiratory Verified 01/14/20 16:26 - Social History Does the pt smoke?: No Smoking Status: Never smoker Does the pt drink ETOH?: Yes Does the pt have substance abuse?: No - Immunizations Immunizations are current?: Yes - POLST Patient has POLST: Yes POLST Status: DNR PD ED PE NORMAL - Vitals Vital signs reviewed: Yes - General General: Alert and oriented X 3, No acute distress - HEENT HEENT: Moist mucous membranes - Neck Neck: Supple, no meningeal sign - Derm Derm: Warm and dry - Extremities Extremities: Other (L foot - occasional tenderness over the dorsum of the L foot. No bony tenderness. NVI. Normal ankle, tibia, fibula, normal knee exam. ) - Neuro Neuro: Alert and oriented X 3 - Psych Psych: Normal mood, Normal affect Results - Vitals Vitals: Vital Signs - 24 hr 01/14/20 01/14/20 16:02 18:01 Temperature 36.8 C 37 C Heart Rate 113 H 78 Respiratory 18 16 Rate Blood Pressure 183/102 H 177/90 H O2 Saturation 99 99 Oxygen O2 Source Room air - Rads (name of study) L foot xray Radiology: Prelim report reviewed, EMP read contemporaneously, See rad report (Tarsometatarsal joint degenerative changes. No acute bony abnormality. ) PD MEDICAL DECISION MAKING - ED course Complexity details: reviewed results, considered differential, d/w patient ED course: Patient with arthritis of the foot. We will continue supportive care and follow-up with her doctor. She is well-appearing, nontoxic. Afebrile. No skin changes. Patient counseled regarding signs and symptoms for which I believe and urgent re-evaluation would be necessary. Patient with good understanding of and agreement to plan and is comfortable going home at this time This document was made in part using voice recognition software. While efforts are made to proofread this document, sound alike and grammatical errors may occur. Departure - Departure Disposition: 01 Home, Self Care Clinical Impression: Arthritis Condition: Good Instructions: ED Degenerative Joint Disease Follow-Up: Scheidt,Judye A, DO [Primary Care Provider] - Within 1 week Comments: Continue Tylenol as needed for pain at home. Return if you worsen. Your x-ray just shows arthritis in your foot. Discharge Date/Time: 01/14/20 18:01
--- NOTE | 2020-01-14 17:32 | XRAY Report ---
Reason: L foot pain, no known injury Procedure Date: 01/14/2020 Accession Number: [id number] / [id number] Procedure: XR - Foot 3 View LT CPT Code: Final Report FULL RESULT: EXAM: LEFT FOOT RADIOGRAPHY EXAM DATE: 01/14/2020 04:57 PM. CLINICAL HISTORY: Left foot pain, no known injury. COMPARISON: None. TECHNIQUE: 3 views. FINDINGS: Bones: Normal. No fractures or bone lesions. Joints: Tarsometatarsal joint degenerative changes. No dislocations. Soft Tissues: Normal. No soft tissue swelling. IMPRESSION: Tarsometatarsal joint degenerative changes. No acute bony abnormality. RADIA
[2020-01-14 18:01] VITALS: BP 177/90
== END 2020-01-14 18:01 | disposition home or self-care (01) ==
LOC: ED 15:32
DX: M19.072 Primary osteoarthritis, left ankle and foot (principal); I10 Essential (primary) hypertension; Z86.718 Personal history of other venous thrombosis and embolism; Z79.82 Long term (current) use of aspirin; Z66 Do not resuscitate
CPT/HCPCS: 99283; 99284

== ENCOUNTER 2020-03-13 19:58 | Emergency (ER) | payer MEDICARE, OTHER ==
[2020-03-13 20:04] VITALS: BP 174/100
--- NOTE | 2020-03-13 20:23 | ED Physician Documentation ---
History of Present Illness - Stated complaint Stated Complaint: DOG BITE - Chief complaint Chief Complaint: Laceration - History obtained from History obtained from: Patient (Patient is an 89-year-old female who was bit by family members dog. The dog is up-to-date on all of its immunizations and vaccines. She is [id number] she was bit on the right forearm denies taking blood thinners.) Review of Systems Constitutional: reports: Reviewed and negative Eyes: reports: Reviewed and negative Ears: reports: Reviewed and negative Nose: reports: Reviewed and negative Throat: reports: Reviewed and negative Cardiac: reports: Reviewed and negative Respiratory: reports: Reviewed and negative GI: reports: Reviewed and negative : reports: Reviewed and negative Skin: reports: Reviewed and negative Musculoskeletal: reports: Other (Dog bite to right forearm) Neurologic: reports: Reviewed and negative Psychiatric: reports: Reviewed and negative Endocrine: reports: Reviewed and negative Immunocompromised: reports: Reviewed and negative PD PAST MEDICAL HISTORY - Past Medical History Past Medical History: Yes Cardiovascular: Hypertension, High cholesterol, Coronary artery disease, Deep vein thrombosis, Angina, Arrhythmia Respiratory: Shortness of breath Neuro: None Endocrine/Autoimmune: HyPOthyroidism GI: GERD, GI bleed, Diverticulitis 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 : None HEENT: None Psych: Depression, Anxiety Musculoskeletal: Osteoarthritis Derm: None - Past Surgical History Past Surgical History: Yes General: Colonoscopy, Other Ortho: Knee replacement /MEDICAID BUSINESS ANALYST: Hysterectomy Cardiovascular: Pacemaker, Vascular surgery - Present Medications Home Medications: Ambulatory Orders Medication Instructions Recorded Confirmed Levothyroxine Sodium [Levoxyl] 75 mcg PO QPM 01/16/13 09/24/18 PARoxetine [Paxil] 20 mg PO DAILY 01/16/13 09/24/18 Telmisartan [Micardis] 40 mg PO BID 01/16/13 09/24/18 LORazepam [Ativan] 0.5 mg PO BID PRN 09/01/16 09/24/18 Pantoprazole Sodium [Protonix] 40 mg PO DAILY 07/21/18 09/24/18 Aspirin 325 mg PO DAILY #10 tablet 09/25/18 Atorvastatin [Lipitor] 20 mg PO QPM #20 tablet 09/25/18 Metoprolol Tartrate 75 mg PO BID #40 tablet 09/25/18 Nitroglycerin [Nitrostat] 0.4 mg SL Q5MIN PRN #30 tablet 09/25/18 Amox/Clav 875/125 [Augmentin] 1 each PO Q12H 7 Days #14 tablet 03/13/20 cloNIDine [Catapres] 0.1 mg PO DAILY 03/13/20 03/13/20 - Allergies Allergies/Adverse Reactions: Allergies Allergy/AdvReac Type Severity Reaction Status Date / Time fluconazole [From Diflucan] Allergy Unknown Verified 03/13/20 20:01 naproxen [From Aleve] Allergy Unknown Verified 03/13/20 20:01 nitrofurantoin Allergy Unknown Verified 03/13/20 20:01 [From Macrobid] lisinopril AdvReac Respiratory Verified 03/13/20 20:01 - Social History Does the pt smoke?: No Smoking Status: Never smoker Does the pt drink ETOH?: Yes Does the pt have substance abuse?: No - Immunizations Immunizations are current?: Yes - POLST Patient has POLST: Yes POLST Status: DNR PD ED PE NORMAL - Vitals Vital signs reviewed: Yes - General General: Alert and oriented X 3, No acute distress, Well developed/nourished - HEENT HEENT: PERRL - Neck Neck: Supple, no meningeal sign - Cardiac Cardiac: RRR, No murmur - Respiratory Respiratory: Clear bilaterally - Abdomen Abdomen: Normal bowel sounds, Soft, Non tender, Non distended - Derm Derm: Warm and dry, Other (2 separate 5 mm puncture wounds to the mid dorsal right forearm) - Extremities Extremities: No deformity, Other (2 separate 5 mm puncture wounds to the mid dorsal right forearm. Radian, median, ulnar motor and sensory exam are intact, no foreign bodies identified wound irrigated. Compartments are soft neurovascular intact) - Neuro Neuro: Alert and oriented X 3 - Psych Psych: Normal mood, Normal affect Results - Vitals Vitals: Vital Signs - 24 hr 03/13/20 20:01 Temperature 36.5 C Heart Rate 72 Respiratory 14 Rate Blood Pressure 174/100 H O2 Saturation 97 Oxygen O2 Source Room air Procedures - General procedure General procedure: Puncture wounds were thoroughly irrigated, no foreign bodies identified bacitracin was applied and simple dressing was applied. Radian, median, ulnar motor and sensory exam are intact compartments soft neurovascular intact.Strength 5 out of 5 sensations intact light touch. PD MEDICAL DECISION MAKING - ED course Complexity details: reviewed results, re-evaluated patient, considered differential (Dog bite, puncture wound, foreign body.Patient's tetanus is up-t o-date.X-ray shows no foreign body.), d/w patient, d/w family Departure - Departure Disposition: 01 Home, Self Care Clinical Impression: Puncture wound Dog bite Qualifiers: Encounter type: initial encounter Qualified Code(s): W54.0XXA - Bitten by dog, initial encounter Condition: Stable Instructions: ED Bite Animal General, ED Wound Puncture General Follow-Up: Divya Raphael DO [Primary Care Provider] - Tomorrow Prescriptions: Amox/Clav 875/125 [Augmentin] 1 each PO Q12H 7 Days #14 tablet Comments: keep wound clean, dry and protected. take antibiotics as directed. follow up with your pcp tomorrow for a wound check.
[2020-03-13] MEDS ORDERED: BACITRACIN ZINC OINT 1 PACKET TOP STA (20:31)
[2020-03-13] MEDS ORDERED: AMOX/CLAV 875 MG/125 MG TABLET PO STA (20:32)
--- NOTE | 2020-03-13 21:08 | XRAY Report ---
PROCEDURE: Forearm RT INDICATIONS: dog bite TECHNIQUE: 2 views of the forearm were acquired. COMPARISON: None. FINDINGS: Bones: No acute fractures or dislocations. No suspicious bony lesions. Soft tissues: Soft tissue swelling overlying the right mid to distal forearm without underlying radi opaque soft tissue foreign bodies. No suspicious soft tissue calcifications or masses. Chronic calci fications of the TFCC. IMPRESSION: Right forearm soft tissue swelling without radiopaque soft tissue foreign bodies or underlying fractu re/dislocation. Reviewed by: Prem Zaragoza MD on 03/13/2020 9:07 PM PDT Approved by: Prem Zaragoza MD on 03/13/2020 9:07 PM PDT Station ID: [id number]
== END 2020-03-13 21:44 | disposition home or self-care (01) ==
LOC: ED 19:58
DX: S51.851A Open bite of right forearm, initial encounter (principal); W54.0XXA Bitten by dog, initial encounter; I10 Essential (primary) hypertension; Z79.82 Long term (current) use of aspirin; Z66 Do not resuscitate
CPT/HCPCS: 73090; 99283; A9270